=== PATIENT | male | born 1975 | race American Indian/Alaskan Native ===

== ENCOUNTER 2017-03-08 09:19 | Emergency (ER) | payer MEDICAID ==
[2017-03-08 09:19] VITALS: BMI 21.9
[2017-03-08 09:26] VITALS: RESP 18; O2SAT 100
[2017-03-08 10:29] LABS: BASO # 0.1 K/uL (0.0-0.2); BASO % 0.8 % (0.0-2.0); EOS # 0.3 K/uL (0.0-0.7); EOS % 3.5 % (0.0-4.0); HEMATOCRIT 44.2 % (35.0-51.0); LYMPH # 2.6 K/uL (1.0-4.3); LYMPH % 33.5 % (20.0-40.0); MEAN CELL VOLUME 91.2 fL (80.0-94.0); MEAN CORPUSCULAR HEMOGLOBIN 29.9 pg (27.0-31.0); MEAN CORPUSCULAR HGB CONC 32.8 g/dL (33.0-37.0); MEAN PLATELET VOLUME 9.7 fL (7.2-11.7); MONO # 0.6 K/uL (0.0-0.8); MONO % 7.3 % (0.0-10.0); NRBC % 0.1 % (0.0-2.0); WHITE BLOOD COUNT 7.7 K/uL (4.8-10.8)
[2017-03-08 10:31] LABS: RBC URINE 1 /hpf (0-3); URINE BILIRUBIN NEGATIVE (NEGATIVE); URINE BLOOD NEGATIVE (NEGATIVE); URINE COLOR Yellow (YELLOW); URINE GLUCOSE (UA) NORMAL (Normal); URINE KETONE NEGATIVE (NEGATIVE); URINE LEUKOCYTE ESTERASE NEG Leu/uL (Negative); URINE PROTEIN NEGATIVE (NEGATIVE); URINE UROBILINOGEN NORMAL mg/dL (0.2-1.0)
[2017-03-08 10:32] LABS: WBC URINE 1 /hpf (0-5)
[2017-03-08 10:36] LABS: CHLORIDE 99 mmol/L (98-107)
[2017-03-08 10:37] LABS: POTASSIUM 4.2 mmol/L (3.6-5.2); SODIUM 139 mmol/L (132-148)
[2017-03-08 10:39] LABS: ALB/GLOB RATIO 1.6 (1.0-2.1); ALKALINE PHOSPHATASE 55 U/L (38-126); ALT/SGPT 26 U/L (21-72); AST/SGOT 25 U/L (17-59); BILIRUBIN,TOTAL 0.7 mg/dL (0.2-1.3); BLOOD UREA NITROGEN 14 mg/dL (9-20); CARBON DIOXIDE 30 mmol/L (22-30); GFR AFRICAN-AMERICAN > 60; GLUCOSE,RANDOM 85 mg/dL (75-110); TOTAL PROTEIN 7.4 g/dL (6.3-8.3)
[2017-03-08 10:40] LABS: ALCOHOL SERUM < 10 mg/dl (0-10); CALCIUM 9.2 mg/dl (8.6-10.4)
--- NOTE | 2017-03-08 10:47 | C.PDOC ---
History Of Present Illness 41-year-old male, PMHx includes EtOH and Substance Abuse, presents to the emergency department requesting detox from alcohol and crack/cocaine. Patient states his last use was yesterday. Patient was pre-screened by crisis. He denies any current physical complaints. Time Seen by Provider: 03/08/17 09:38 Chief Complaint (Nursing): Substance Abuse History Per: Patient History/Exam Limitations: no limitations Modifying Factor(s): Alcohol, Cocaine, Crack Associated Symptoms: denies: Depression, Suicidal Thoughts Past Medical History Reviewed: Historical Data, Nursing Documentation, Vital Signs Vital Signs: Last Vital Signs Temp 98.4 F 03/08/17 11:55 Pulse 88 03/08/17 11:55 Resp 18 03/08/17 11:55 BP 119/72 03/08/17 11:55 Pulse Ox 100 03/08/17 11:57 - Medical History PMH: Back Problems, Depression, Sleep Apnea Surgical History: Appendectomy Family History: States: No Known Family Hx - Social History Hx Tobacco Use: Yes Hx Alcohol Use: Yes Hx Substance Use: Yes - Immunization History Hx Tetanus Toxoid Vaccination: No Hx Influenza Vaccination: No Hx Pneumococcal Vaccination: No Review Of Systems Except As Marked, All Systems Reviewed And Found Negative. Constitutional: Negative for: Fever Cardiovascular: Negative for: Chest Pain, Palpitations Respiratory: Negative for: Cough, Shortness of Breath Gastrointestinal: Negative for: Nausea, Vomiting, Abdominal Pain, Diarrhea Neurological: Negative for: Weakness, Numbness, Headache, Dizziness Psych: Negative for: Suicidal ideation Physical Exam - Physical Exam Appears: Well, Non-toxic, No Acute Distress, Other (Calm and cooperative) Head: Atraumatic, Normacephalic Eye(s): bilateral: Normal Inspection, PERRL, EOMI Oral Mucosa: Moist Tongue: Other (No fasciculation) Cardiovascular: Rhythm Regular Respiratory: Normal Breath Sounds, No Rales, No Rhonchi, No Wheezing Extremity: Normal ROM Extremity: Bilateral: Atraumatic, Normal Color And Temperature, Normal ROM Neurological/Psych: Oriented x3 Gait: Steady ED Course And Treatment - Laboratory Results Result Diagrams: 03/08/17 10:23 03/08/17 10:23 O2 Sat by Pulse Oximetry: 100 (ra) Pulse Ox Interpretation: Normal Progress Note: Bloodwork, UA, UDS ordered and reviewed. 11:15am- Patient medically cleared. Pending crisis. 11:55AM- Crisis counselor has spoken with Dr. Bhatt, patient not accepted for detox admission due to (+) PCP. Patient had been warned on phone that if (+) he would not be accepted, but he stated he used it "one week ago" and would "take his chances". Reevaluation Time: 11:55 Reassessment Condition: Improved (Patient reassessed, is currently in no pain/ distress. He is AAOx3, ambulating normally in the ED, and is clinically sober at this time. He was instructed to follow up with PMD/clinic in 1-2 days, and understands he should return to ED if he has any concerning symptoms.) Disposition Counseled Patient/Family Regarding: Studies Performed, Diagnosis, Need For Followup - Disposition Referrals: Stephane Jung MD [Medical Doctor] - Disposition: HOME/ ROUTINE Disposition Time: 11:55 Condition: STABLE Additional Instructions: FOLLOW UP WITH YOUR DOCTOR IN 1-2 DAYS RETURN TO ER IF YOU HAVE ANY CONCERNING SYMPTOMS Instructions: Abuse of Alcohol (ED) Forms: General Discharge Instructions Print Language: MALTESE - POA Present On Arrival: None - Clinical Impression Clinical Impression: Alcohol dependence, PCP abuse - Scribe Statement The provider has reviewed the documentation as recorded by the Jose Yoon All medical record entries made by the Rolandoibdarrion were at my direction and personally dictated by me. I have reviewed the chart and agree that the record accurately reflects my personal performance of the history, physical exam, medical decision making, and the department course for this patient. I have also personally directed, reviewed, and agree with the discharge instructions and disposition.
[2017-03-08 12:00] VITALS: BP 119/72; PULSE 88; TEMP 98.4
== END 2017-03-08 12:30 | disposition home or self-care (01) ==
LOC: C.ER 09:19
DX: F10.20 Alcohol dependence, uncomplicated (principal); Y90.9 Presence of alcohol in blood, level not specified; F16.10 Hallucinogen abuse, uncomplicated

== ENCOUNTER 2017-11-22 10:42 | Inpatient (IN) | payer MEDICAID ==
[2017-11-22 10:42] VITALS: BMI 21.9
--- NOTE | 2017-11-22 11:46 | C.PDOC ---
History Of Present Illness 41yo male with history of cluster headaches, depression, bipolar disorder presents to ED for evaluation as he has been having suicidal and homicidal ideation. Patient states he attempted to hurt himself by taking more than the prescribed dose of his medications. He reports he uses PCP with last use 3 months ago and cocaine as well with last use 2 days ago. He also reports associated auditory hallucinations which tell him to "retaliate". Patient denies any chest pain, shortness of breath. He has no other medical complaints. Time Seen by Provider: 11/22/17 11:33 Chief Complaint (Nursing): Psychiatric Evaluation History Per: Patient History/Exam Limitations: no limitations Onset/Duration Of Symptoms: Days Current Symptoms Are (Timing): Still Present Modifying Factor(s): Cocaine Associated Symptoms: Suicidal Thoughts Past Medical History Vital Signs: Last Vital Signs Temp 97.6 F 11/22/17 10:53 Pulse 79 11/22/17 10:53 Resp 18 11/22/17 10:53 BP 133/87 11/22/17 10:53 Pulse Ox 100 11/22/17 12:24 - Medical History PMH: Back Problems, Bipolar Disorder, Depression, Schizophrenia, Sleep Apnea Denies: Diabetes, Hepatitis, HIV, HTN, Chronic Kidney Disease, Seizures, Sexually Transmitted Disease Surgical History: Appendectomy Family History: States: Unknown Family Hx - Social History Hx Tobacco Use: Yes Hx Alcohol Use: Yes Hx Substance Use: Yes (crack cocaine) - Immunization History Hx Tetanus Toxoid Vaccination: No Hx Influenza Vaccination: No Hx Pneumococcal Vaccination: No Review Of Systems Except As Marked, All Systems Reviewed And Found Negative. Constitutional: Negative for: Fever, Chills Cardiovascular: Negative for: Chest Pain Respiratory: Negative for: Shortness of Breath Gastrointestinal: Negative for: Abdominal Pain Psych: Positive for: Psychosis (auditory hallucinations), Suicidal ideation Physical Exam - Physical Exam Appears: No Acute Distress Skin: Normal Color Head: Atraumatic, Normacephalic Eye(s): bilateral: Normal Inspection Neck: Supple Chest: Symmetrical Cardiovascular: Rhythm Regular Respiratory: Normal Breath Sounds Back: Normal Inspection Extremity: Normal ROM Neurological/Psych: Oriented x3 ED Course And Treatment - Laboratory Results Result Diagrams: 11/22/17 11:57 11/22/17 11:57 O2 Sat by Pulse Oximetry: 100 (RA) Pulse Ox Interpretation: Normal Medical Decision Making Medical Decision Making: Impression: 41yo male with suicidal ideation Plan: -- UDS -- Crisis evaluation Disposition Counseled Patient/Family Regarding: Studies Performed, Diagnosis - Disposition Disposition: HOSPITALIZED Disposition Time: 14:26 Condition: STABLE Forms: [facility] (German) - Clinical Impression Clinical Impression: Schizophrenia - Scribe Statement The provider has reviewed the documentation as recorded by the Jose Daly Provider Attestation: All medical record entries made by the Jose were at my direction and personally dictated by me. I have reviewed the chart and agree that the record accurately reflects my personal performance of the history, physical exam, medical decision making, and the department course for this patient. I have also personally directed, reviewed, and agree with the discharge instructions and disposition. Decision To Admit - Pt Status Changed To: Hospital Disposition Of: Inpatient - Admit Certification Admit to Inpatient:: After my assessment, the patient will require hospitalization for at least two midnights. This is because of the severity of symptoms shown, intensity of services needed, and/or the medical risk in this patient being treated as an outpatient. - InPatient: Physician Admission Certification: I certify that this patient requires 2 or more midnights of care for the following reason:: needs in patient psych - . Bed Request Type: Psychiatry Patient Diagnosis: Schizophrenia
[2017-11-22 12:04] LABS: BASO # 0.1 K/uL (0.0-0.2); BASO % 0.8 % (0.0-2.0); EOS # 0.5 K/uL (0.0-0.7); EOS % 4.7 % (0.0-4.0); HEMOGLOBIN 14.6 g/dL (12.0-18.0); LYMPH # 2.6 K/uL (1.0-4.3); LYMPH % 26.8 % (20.0-40.0); MEAN CELL VOLUME 90.8 fL (80.0-94.0); MEAN CORPUSCULAR HEMOGLOBIN 30.8 pg (27.0-31.0); MEAN PLATELET VOLUME 9.6 fL (7.2-11.7); MONO # 0.7 K/uL (0.0-0.8); MONO % 7.5 % (0.0-10.0); NEUT # 5.9 K/uL (1.8-7.0); NEUT % 60.2 % (50.0-75.0); RBC 4.73 Mil/uL (4.40-5.90); RED CELL DISTRIBUTION WIDTH 13.6 % (11.5-14.5); WHITE BLOOD COUNT 9.7 K/uL (4.8-10.8)
[2017-11-22 12:05] LABS: URINE BILIRUBIN NEGATIVE (NEGATIVE); URINE BLOOD NEGATIVE (NEGATIVE); URINE CLARITY Clear (Clear); URINE COLOR Straw (YELLOW); URINE GLUCOSE (UA) NORMAL (Normal); URINE LEUKOCYTE ESTERASE NEG Leu/uL (Negative); URINE NITRATE NEGATIVE (NEGATIVE); URINE PROTEIN NEGATIVE (NEGATIVE); URINE UROBILINOGEN NORMAL mg/dL (0.2-1.0)
[2017-11-22 12:20] LABS: ALB/GLOB RATIO 1.3 (1.0-2.1); ALBUMIN 4.3 g/dL (3.5-5.0); ALT/SGPT 19 U/L (21-72); AST/SGOT 28 U/L (17-59); BLOOD UREA NITROGEN 14 mg/dL (9-20); CALCIUM 9.2 mg/dl (8.6-10.4); GFR AFRICAN-AMERICAN > 60; GFR NON-AFRICAN AMERICAN > 60
[2017-11-22 12:31] LABS: BARBITURATES, UR NEGATIVE (NEGATIVE); BENZODIAZEPINES, UR NEGATIVE (NEGATIVE); OPIATES, UR NEGATIVE (NEGATIVE); PHENCYCLIDINE, UR NEGATIVE (NEGATIVE)
--- NOTE | 2017-11-22 16:00 | PCM.BM ---
<MykelAshley gaytan - Last Filed: 11/22/17 15:59> Treatment Plan Problems - Problems identified on initial assessmt Depression Date Initiated: 11/22/17 Time Initiated: 15:59 Assessment reference: NA Status: Active Comment: Hx of cocaine abuse Treatment assets and liabiliti Patient Assests: adapts well, cooperative, motivated, self-reliant, negotiates basic needs Patient Liabilities: live alone, financial problems, poor support system, substance abuse - Milieu Protocol Maintain good personal hygiene: daily Encourage regular showers, daily Remind patient to perform daily oral care Conduct patient checks and document Observation sheet: Q15 minutes Maintain personal safety: every shift Educate patient to report safety concerns to staff, every shift Monitor environment for contraband/sharps Medication safety: Monitor for expected outcome, potential side effects: every shift, Assess barriers to learning: every shift, Assess readiness for medication education: every shift <Saritha Otero - Last Filed: 11/25/17 11:07> Family Contact Family involvement: Famliy/SO not involved - Goals for Treatment Patient goals for treatment: "I want to go to rehab." Discharge/Continuing Care - Education Needs Education Needs: Patient Medication, Patient Coping Skills - Discharge Discharge Criteria: Tolerates medication w/o severe side effects, Reduction of target symptoms Discharge to:: Substance Abuse Rehab - Treatment Team Participation Discussed with Family/SO: No Was Patient/Family/SO present at Treatment Team Meeting: Yes <Aayush,Arnel - Last Filed: 11/25/17 11:08> - Diagnosis (1) Major depressive disorder, recurrent, severe with psychotic features Status: Acute Interventions: 11/25/17 11:07 * Assess/adjust medications daily and /or as needed * See patient on an individual basis 7x/week to assess symptoms of depression * Monitor for side effects & effectiveness of medications * (2) PCP abuse Status: Acute Interventions: 11/25/17 11:08 * Assess 7x/week regarding severity of withdrawal * Educate regarding risks, benefits, side effects and alternatives of medications * Use Motivational Interviewing for abstinence * Use CBT for relapse prevention * Medication management for withdrawal symptoms * Encourage medication assisted treatment *
--- NOTE | 2017-11-23 13:14 | PCM.PSYCH ---
Initial Psychiatric Evaluation - Initial Psychiatric Evaluation Type of Admission: Voluntary Chief Complaint (in patient's own words): Depression - "duran are closing in on me"; hearing voices Patient's Reaction to Hospitalization: 41 year old AA Male who was voluntary admitted due to depression and hearing voices. He currently lives alone in an apartment in [place], currently unemployed, supported by [employer]. Patient reports in 2006 his Father at the age of 79 of Myocardial Infarction. Later on during that year he had a suicide attempt by trying to overdose on pills, and pointing a gun to his head (did not fire). Since then patient has [place] [facility] [place] and he follows up monthly with two programs, [facility] and a 2nd program which assembly instructions writer was unable to understand due to patient' s speech. In recent events, the patient reports he actively uses cocaine, has used PCP a few months back, and last alcohol drink was 4-5 months ago. He reports friends and family keep coming over to drink alcohol and use drugs in his apartment. He does not want this to happen because he no longer wants to participate; however , he can't find it within himself to say no to them. Patient reports he has been feeling depressed, like the "duran are closing in". He states he hears demonic voices telling him to kill himself. Patient reports not taking any medications. Currently denies any voices being heard, any suicidal ideation or homicidal ideation. Patient has poor judgment and insight about his condition. PMHx: Denied Past Psych History: Patient reports he was diagnosed and treated for Schizophrenia Family Psych Hx: Unknown Current Medications: Active Medications Generic Name Dose Route Start Last Admin Trade Name Freq PRN Reason Stop Dose Admin Benztropine Mesylate 1 mg 11/22/17 18:05 11/22/17 22:06 Cogentin PO 1 mg Q6 PRN Administration eps Famotidine 20 mg 11/24/17 10:00 Pepcid PO DAILY YAEL Haloperidol 5 mg 11/22/17 18:05 11/22/17 22:06 Haldol PO 5 mg Q6 PRN Administration hallucinations Hydroxyzine HCl 50 mg 11/22/17 18:05 11/22/17 18:12 Atarax PO 50 mg Q6 PRN Administration Anxiety Ibuprofen 600 mg 11/22/17 18:05 Motrin Tab PO Q6 PRN Pain, moderate (4-7) Mirtazapine 15 mg 11/23/17 22:00 Remeron PO HS [facility] Ondansetron HCl 4 mg 11/23/17 12:00 Zofran Tab PO Q6 YAEL Quetiapine Fumarate 100 mg 11/23/17 22:00 Seroquel PO HS [facility] Past Psychiatric History - Past Psychiatric History Pertinent Medical Hx (Current Medical&Sleep Prob, Allergies): Allergies Allergy/AdvReac Type Severity Reaction Status Date / Time No Known Allergies Allergy Verified 11/22/17 10:53 Folic Acid/Mv,Iron,Min/Lutein [Certa Plus Tablet] 1 tab PO DAILY 12/02/16 Meloxicam [Mobic] 15 mg PO DAILY 12/02/16 Mirtazapine [Remeron] 15 mg PO DAILY 12/02/16 Ergocalciferol [Drisdol] 50,000 iu PO QWK 03/08/17 Famotidine [Pepcid] 20 mg PO DAILY 03/08/17 Ondansetron HCl [Zofran] 4 mg PO PRN PRN 03/08/17 Zolpidem Tartrate 5 mg PO HS 03/08/17 Review of Systems - Review of Systems All systems: reviewed and no additional remarkable complaints except - Psychiatric Psychiatric: Auditory Hallucinations, Depression, Difficulty Concentrating. absent: Hallucinations, Homicidal Ideation, Visual Hallucinations, Tactile Hallucinations Mental Status Examination - Personal Presentation Personal Presentation: Looks stated age - Affect Affect: Flat, Depressed - Motor Activity Motor Activity: Calm - Reliability in Providing Information Reliability in Providing Information: Poor, due to alteration in thoughts, Poor , due to altered mood - Speech Speech: Relevant, Incoherent - Mood Mood: Depressed - Formal Thought Process Formal Thought Process: Hallucinations - Hallucinations/Delusions Hallucinations: Auditory - Cognitive Functions Orientation: Person, Place, Situation, Time Judgement: Imparied, as evidence by: Poor judgement, Imparied, as evidence by: Lack of insight into illness - Limitations Limitations: Living alone DSM 5 DX - Recommended/Plan of Treatment Treatment Recommendations and Plan of Treatment: Major Depressive Disorder -CBT -Psychoeducation -Supportive therapy, group therapy, individual therapy -Remeron 15mg and Seroquel 100mg by mouth every night Cocaine Use Disorder -Supportive therapy, individual therapy -Monitor signs and symptoms -Use DC for abstinence DW Jennifer Graves Fabara DO, PGY-1
--- NOTE | 2017-11-24 22:18 | PCM.PYCHPN ---
Psychiatric Progress Note - Psychiatric Progress Note Patient seen today, length of contact: 15 min Medication Change: No Medical Record Reviewed: Yes Mental Status Examination - Cognitive Function Orientation: Person, Place, Situation, Time Memory: Intact Attention: WNL Concentration: Poor Association: WNL Fund of Knowledge: Poor - Mood Mood: Depressed, Anxious - Affect Affect: Constricted, Flat, Depressed - Speech Speech: Soft - Formal Thought Process Formal Thought Process: Hallucinations - Suicidal Ideation Suicidal Ideation: No - Homicidal Ideation Homicidal Ideation: No Goal/Treatment Plan - Goal/Treatment Plan Need for Continued Stay: Severe depression anxiety, Severe functional impairment - Smoking Cessation Smoking Cessation Initiated: No
--- NOTE | 2017-11-25 11:07 | PCM.PYCHPN ---
Psychiatric Progress Note - Psychiatric Progress Note Patient seen today, length of contact: 15 min Medication Change: No Medical Record Reviewed: Yes Mental Status Examination - Cognitive Function Orientation: Person, Place, Situation, Time Memory: Intact Attention: WNL Concentration: Poor Association: WNL Fund of Knowledge: Poor - Mood Mood: Depressed, Anxious - Affect Affect: Constricted, Flat, Depressed - Speech Speech: Soft - Formal Thought Process Formal Thought Process: Hallucinations - Suicidal Ideation Suicidal Ideation: No - Homicidal Ideation Homicidal Ideation: No Goal/Treatment Plan - Goal/Treatment Plan Need for Continued Stay: Severe depression anxiety, Severe functional impairment
[2017-11-26 07:28] VITALS: BP 120/89; PULSE 126; RESP 20; TEMP 98.2; O2SAT 98
--- NOTE | 2017-11-26 11:11 | PCM.PYCHDC ---
Mental Status Examination - Mental Status Examination Orientation: Person, Place, Situation, Time Memory: Intact Mood: Neutral Affect: Constricted Speech: Soft Attention: WNL Concentration: WNL Association: WNL Fund of Knowledge: WNL Formal Thought Process: No Impairment Description of patient's judgement and insight: good, fair Psychotic Thoughts and Behaviors: denies any AVH Suicidal Ideation: No Current Homicidal Ideation?: No Discharge Summary - Discharge Note Consultations:: List each consultation separately and include: 1. Reason for request. 2. Findings. 3. Follow-up Summary of Hospital Course include:: 1. Description of specific treatment plan utilized for patients during their course of treatmen. 2. Summarize the time- course for resolution of acute symptoms and/or regressed behaviors. 3. Describe issues identified and worked on during hospitalization. 4. Describe medication utilized. 5. Describe medical problems identified and treated. 6. Reassessment of suicide risk - Diagnosis (1) Major depressive disorder, recurrent, severe with psychotic features Current Visit: Yes Status: Acute (2) PCP abuse Current Visit: No Status: Acute - Final Diagnosis (DSM 5) Condition upon Discharge: STABLE Disposition: HOME/ ROUTINE Prescriptions/Medication Reconciliation: Mirtazapine [Remeron] 15 mg PO HS #14 tab QUEtiapine [Seroquel] 100 mg PO HS #14 tab
== END 2017-11-26 11:53 | disposition home or self-care (01) | DRG 430 ==
LOC: C.ER 10:42 → C.9E 14:27 → C.5E 14:58
PROVIDERS: ADMIT Psychiatry & Neurology Psychiatry; ATTEND Psychiatry & Neurology Psychiatry
DX: F33.3 Major depressive disorder, recurrent, severe with psychotic symptoms (principal); R45.850 Homicidal ideations; F14.10 Cocaine abuse, uncomplicated; G47.30 Sleep apnea, unspecified; Z87.891 Personal history of nicotine dependence; F41.9 Anxiety disorder, unspecified

== ENCOUNTER 2018-01-22 17:42 | Emergency (ER) | payer MEDICAID ==
[2018-01-22 17:42] VITALS: BMI 21.9
[2018-01-22 17:49] VITALS: BP 123/79; PULSE 78; TEMP 98.6; O2SAT 99
[2018-01-22 19:06] VITALS: RESP 18
== END 2018-01-22 19:02 | disposition left against medical advice (07) ==
LOC: C.ER 17:42
DX: Z02.89 Encounter for other administrative examinations (principal); F10.10 Alcohol abuse, uncomplicated

== ENCOUNTER 2018-01-24 11:12 | Inpatient (IN) | payer MEDICAID ==
[2018-01-24 11:12] VITALS: BMI 21.9
[2018-01-24 12:09] LABS: BASO # 0.1 K/uL (0.0-0.2); BASO % 1.1 % (0.0-2.0); EOS # 0.5 K/uL (0.0-0.7); EOS % 4.1 % (0.0-4.0); HEMOGLOBIN 13.4 g/dL (12.0-18.0); LYMPH # 2.7 K/uL (1.0-4.3); LYMPH % 24.2 % (20.0-40.0); MEAN CORPUSCULAR HEMOGLOBIN 29.5 pg (27.0-31.0); MEAN CORPUSCULAR HGB CONC 34.2 g/dL (33.0-37.0); MEAN PLATELET VOLUME 8.7 fL (7.2-11.7); MONO # 0.7 K/uL (0.0-0.8); NEUT # 7.2 K/uL (1.8-7.0); NEUT % 64.6 % (50.0-75.0); NRBC % 0.1 % (0.0-2.0); RBC 4.54 Mil/uL (4.40-5.90); RED CELL DISTRIBUTION WIDTH 14.2 % (11.5-14.5); WHITE BLOOD COUNT 11.2 K/uL (4.8-10.8)
[2018-01-24 12:13] LABS: MEAN CELL VOLUME 86.4 fL (80.0-94.0)
[2018-01-24 12:26] LABS: ALB/GLOB RATIO 1.2 (1.0-2.1); ALBUMIN 3.9 g/dL (3.5-5.0); ALT/SGPT 11 U/L (21-72); AST/SGOT 26 U/L (17-59); BLOOD UREA NITROGEN 9 mg/dL (9-20); CALCIUM 8.6 mg/dl (8.6-10.4); GFR AFRICAN-AMERICAN > 60; GFR NON-AFRICAN AMERICAN > 60
--- NOTE | 2018-01-24 12:42 | C.PDOC ---
History Of Present Illness 42 y/o male, w/PMhx of schizophrenia, presents to the ER requesting detox from ETOH and cocaine. Patient states that he is not feeling right. Patient denies having suicidal ideation and homicidal ideation. Chief Complaint (Nursing): Substance Abuse History Per: Patient History/Exam Limitations: no limitations Past Medical History Reviewed: Historical Data, Nursing Documentation, Vital Signs Vital Signs: Last Vital Signs Temp 98.3 F 01/24/18 14:32 Pulse 80 01/24/18 14:32 Resp 17 01/24/18 16:07 BP 112/77 01/24/18 14:32 Pulse Ox 96 01/24/18 15:01 - Medical History PMH: Back Problems, Bipolar Disorder, Depression, Schizophrenia, Sleep Apnea Denies: Diabetes, Hepatitis, HIV, HTN, Chronic Kidney Disease, Seizures, Sexually Transmitted Disease Surgical History: Appendectomy Family History: States: No Known Family Hx - Social History Hx Tobacco Use: Yes Hx Alcohol Use: Yes Hx Substance Use: Yes - Immunization History Hx Tetanus Toxoid Vaccination: No Hx Influenza Vaccination: Yes Hx Pneumococcal Vaccination: No Review Of Systems Except As Marked, All Systems Reviewed And Found Negative. Physical Exam - Physical Exam Appears: No Acute Distress Skin: Normal Color, Warm Head: Atraumatic, Normacephalic Eye(s): bilateral: Normal Inspection Nose: Normal Oral Mucosa: Moist Neck: Supple Chest: Symmetrical Cardiovascular: Rhythm Regular Respiratory: Normal Breath Sounds, No Rales, No Rhonchi, No Wheezing Extremity: Normal ROM Neurological/Psych: Oriented x3, Normal Speech ED Course And Treatment - Laboratory Results Result Diagrams: 01/24/18 12:05 01/24/18 12:05 O2 Sat by Pulse Oximetry: 96 (RA) Pulse Ox Interpretation: Normal Progress Note: Labs and UA ordered. Patient has been medically cleared and found to be stable. Patient was seen by connection worker and accepted by Dr. Looney for psych admission. Disposition - Disposition Disposition: HOSPITALIZED Disposition Time: 13:48 Condition: STABLE - Clinical Impression Clinical Impression: Alcohol dependence, Drug dependence, Schizophrenia Decision To Admit - Pt Status Changed To: Hospital Disposition Of: Inpatient - Admit Certification Admit to Inpatient:: After my assessment, the patient will require hospitalization for at least two midnights. This is because of the severity of symptoms shown, intensity of services needed, and/or the medical risk in this patient being treated as an outpatient. - InPatient: Physician Admission Certification: I certify that this patient requires 2 or more midnights of care for the following reason:: Patient will need more than 2 days of hospitalization for psych treatment. - . Bed Request Type: Psychiatry Admitting Physician: Arnel Looney Patient Diagnosis: Alcohol dependence, Drug dependence, Schizophrenia
[2018-01-24 12:57] LABS: SQUAMOUS EPITHIAL 1 /hpf (0-5); URINE BILIRUBIN NEGATIVE (NEGATIVE); URINE BLOOD NEGATIVE (NEGATIVE); URINE CLARITY Clear (Clear); URINE COLOR Yellow (YELLOW); URINE GLUCOSE (UA) NORMAL (Normal); URINE LEUKOCYTE ESTERASE NEG Leu/uL (Negative); URINE PROTEIN NEGATIVE (NEGATIVE)
[2018-01-24 13:17] LABS: BARBITURATES, UR NEGATIVE (NEGATIVE); BENZODIAZEPINES, UR NEGATIVE (NEGATIVE); OPIATES, UR NEGATIVE (NEGATIVE)
[2018-01-24 13:43] LABS: PHENCYCLIDINE, UR POSITIVE (NEGATIVE)
--- NOTE | 2018-01-24 16:15 | PCM.BM ---
<Erinn Chamorro - Last Filed: 01/24/18 16:14> Treatment Plan Problems - Problems identified on initial assessmt Depression Date Initiated: 01/24/18 Time Initiated: 16:14 Assessment reference: NA Status: Active Substance Abuse Date Initiated: 01/24/18 Time Initiated: 16:14 Assessment reference: NA Status: Active Treatment assets and liabiliti Patient Assests: cooperative, motivated, self-reliant, ADL independent, negotiates basic needs, cognitively intact Patient Liabilities: live alone, financial problems, substance abuse (PCP, Cocaine, ETOH), medical problems (Appendectomy had sx) - Milieu Protocol Maintain good personal hygiene: daily Encourage regular showers, daily Remind patient to perform daily oral care, daily Assist patient to perform ADL's (Self) Conduct patient checks and document Observation sheet: Q15 minutes (Safety) Maintain personal safety: every shift Educate patient to report safety concerns to staff, every shift Monitor environment for contraband/sharps Medication safety: Monitor for expected outcome, potential side effects: every shift, Assess barriers to learning: every shift, Assess readiness for medication education: every shift <Arnel Looney - Last Filed: 01/25/18 11:06> - Diagnosis (1) Major depressive disorder, recurrent, severe with psychotic features Status: Acute Interventions: 01/25/18 11:06 * Assess/adjust medications daily and /or as needed * See patient on an individual basis 7x/week to assess symptoms of depression * Monitor for side effects & effectiveness of medications * (2) Drug dependence Status: Acute Interventions: 01/25/18 11:06 * Assess 7x/week regarding severity of withdrawal * Educate regarding risks, benefits, side effects and alternatives of medications * Use Motivational Interviewing for abstinence * Use CBT for relapse prevention * Medication management for withdrawal symptoms * Encourage medication assisted treatment * <Saritha Otero - Last Filed: 01/25/18 13:55> Family Contact Family involvement: Famliy/SO not involved - Goals for Treatment Patient goals for treatment: "I want to go to rehab." Discharge/Continuing Care - Education Needs Education Needs: Patient Medication, Patient Coping Skills, Patient Placement options, Patient Community resources - Discharge Discharge Criteria: Tolerates medication w/o severe side effects, No longer exhibiting s/s of withdrawal Discharge to:: Substance Abuse Rehab - Treatment Team Participation Discussed with Family/SO: No Was Patient/Family/SO present at Treatment Team Meeting: Yes
[2018-01-24] MEDS ORDERED: Aluminum Hydroxide/Magnesium Hydroxide Susp (30 mL) PO PRN (16:45)
--- NOTE | 2018-01-25 11:05 | PCM.PSYCH ---
Initial Psychiatric Evaluation - Initial Psychiatric Evaluation Type of Admission: Voluntary Legal Status: Capacity Chief Complaint (in patient's own words): I was feeling suicidal.' History of Present Illness and Precipitating Events: Patient is a 42 year old AAM who came to the hospital for depressed mood and suicidal ideation. Patient was just discharged from [facility] almost 2 months ago. As per the patient soon after discharge from the hospital, he stopped medications and relapsed on cocaine and PCP. As per the patient yesterday he smoked almost $50 worth of cocaine, became increasingly depressed and developed suicidal ideation , so he came to the hospital to get help. Patient also reports of drinking 6-8 18oz beers every other day and smoking PCP once per week. He reports depressed mood, feelings of worthlessness, poor sleep and poor appetite. He reports some visual hallucinations but denies any auditory hallucinations or any paranoia. He denies any HI. Patient denies any other substance abuse. PMH None reported Current Medications: Active Medications Generic Name Dose Route Start Last Admin Trade Name Freq PRN Reason Stop Dose Admin Acetaminophen 650 mg 01/24/18 16:44 Tylenol 325mg Tab PO Q6 PRN Fever >100.4 F Al Hydrox/Mg Hydrox/Simethicone 30 ml 01/24/18 16:45 Maalox 30 Ml PO TID PRN Indigestion / Heartburn Benztropine Mesylate 2 mg 01/24/18 16:44 Cogentin PO Q6 PRN Extra Pyramidal Symptoms Clonidine HCl 0.1 mg 01/24/18 16:45 Catapres PO Q8 PRN COWS Score More or Equal to 5 Diphenhydramine HCl 50 mg 01/24/18 16:44 Benadryl PO Q6 PRN Extra Pyramidal Symptoms Haloperidol 5 mg 01/24/18 16:44 Haldol PO Q8 PRN Moderate Agitation Loperamide HCl 2 mg 01/24/18 16:45 Imodium PO Q8 PRN Diarrhea Lorazepam 1 mg 01/24/18 16:44 Ativan PO Q6 PRN Anxiety Ondansetron HCl 4 mg 01/24/18 16:45 Zofran Tab PO Q8 PRN Nausea/Vomiting Pneumococcal Polyvalent Vaccine 0.5 ml 01/27/18 10:00 Pneumovax 23 Vaccine IM 01/27/18 10:01 .ONCE ONE Trazodone HCl 50 mg 01/24/18 21:26 Desyrel PO HS PRN Insomnia Past Psychiatric History - Past Psychiatric History Previous Treatment History: Inpatient Pertinent Medical Hx (Current Medical&Sleep Prob, Allergies): Allergies Allergy/AdvReac Type Severity Reaction Status Date / Time No Known Allergies Allergy Verified 01/24/18 11:27 Folic Acid/Mv,Iron,Min/Lutein [Certa Plus Tablet] 1 tab PO DAILY 12/02/16 Meloxicam [Mobic] 15 mg PO DAILY 12/02/16 Ergocalciferol [Drisdol] 50,000 iu PO QWK 03/08/17 Famotidine [Pepcid] 20 mg PO DAILY 03/08/17 Ondansetron HCl [Zofran] 4 mg PO PRN PRN 03/08/17 Zolpidem Tartrate 5 mg PO HS 03/08/17 Mirtazapine [Remeron] 15 mg PO HS #14 tab 11/26/17 QUEtiapine [Seroquel] 100 mg PO HS #14 tab 11/26/17 Review of Systems - Review of Systems All systems: reviewed and no additional remarkable complaints except - Psychiatric Psychiatric: Anxiety, Irritability, Suicidal Ideation Mental Status Examination - Personal Presentation Personal Presentation: Looks stated age - Affect Affect: Constricted, Depressed - Motor Activity Motor Activity: Calm - Reliability in Providing Information Reliability in Providing Information: Fair - Speech Speech: Organized - Mood Mood: Depressed, Anxious - Formal Thought Process Formal Thought Process: No Impairment - Hallucinations/Delusions Hallucinations: Visual - Obsessions/Compulsions Obsessions: No Compulsions: No - Cognitive Functions Orientation: Person, Place, Situation, Time Sensorium: Alert Attention/Concentration: Attentive Abstract Thinking: Shepherd Estimate of Intelligence: Below average Judgement: Imparied, as evidence by: Poor judgement, Imparied, as evidence by: Lack of insight into illness - Risk Risk: Suicidal, Diminished functioning - Limitations Limitations: Living alone DSM 5 DX - DSM 5 DSM 5 Diagnosis: Major depressive disorder recurrent severe with psychotic features Alcohol use disorder moderate Cocaine use disorder severe PCP use disorder moderate - Recommended/Plan of Treatment Treatment Recommendations and Plan of Treatment: Major depressive disorder recurrent severe with psychotic features CBT Psychoeducation Supportive therapy, group therapy, individual therapy Remeron 15 mg PO QHS Trazodone 50 mg by mouth daily at bedtime Seroquel 100 mg by mouth daily at bedtime Alcohol use disorder moderate CBT Psychoeducation Supportive therapy, individual therapy Use [place] for abstinence Cocaine use disorder severe Psychoeducation Supportive therapy, individual therapy Use [place] for abstinence PCP use disorder moderate Monitor signs and symptoms Use [place] for abstinence - Smoking Cessation Smoking Cessation Initiated: No
[2018-01-25] MEDS ORDERED: Home Med 1 UNIT (Meloxicam [Mobic] 15 MG) PO SCH (15:00)
[2018-01-26] MEDS: Multivitamin With Minerals Tab PO SCH (09:09)
--- NOTE | 2018-01-26 21:52 | PCM.PYCHPN ---
Psychiatric Progress Note - Psychiatric Progress Note Patient seen today, length of contact: 15 min Patient Chief Complaint: I was feeling suicidal.' Problems Identified/Issues Discussed: Patient seen and evaluated, chart reviewed and discussed with the nurse. As per the staff, patient still appears isolated, depressed and withdrawn. He reports depressed mood and feelings of hopelessness or helplessness. He denies any auditory or visual hallucinations or any psychotic symptoms. He is taking meds but denies any side effects. He needs more time for stabilization. Supportive therapy and psychoeducation were given. Medication Change: No Medical Record Reviewed: Yes Mental Status Examination - Cognitive Function Orientation: Person, Place, Situation, Time Memory: Intact Attention: WNL Concentration: Poor Association: WNL Fund of Knowledge: Poor - Mood Mood: Depressed, Anxious - Affect Affect: Constricted, Depressed - Speech Speech: Soft - Formal Thought Process Formal Thought Process: No Impairment - Suicidal Ideation Suicidal Ideation: No - Homicidal Ideation Homicidal Ideation: No Goal/Treatment Plan - Goal/Treatment Plan Need for Continued Stay: Severe depression anxiety, Severe functional impairment Progress Toward Problem(s) and Goals/Treatment Plan: Major depressive disorder recurrent severe with psychotic features CBT Psychoeducation Supportive therapy, group therapy, individual therapy Remeron 15 mg PO QHS Trazodone 50 mg by mouth daily at bedtime Seroquel 100 mg by mouth daily at bedtime Alcohol use disorder moderate CBT Psychoeducation Supportive therapy, individual therapy Use [place] for abstinence Cocaine use disorder severe Psychoeducation Supportive therapy, individual therapy Use [place] for abstinence PCP use disorder moderate Monitor signs and symptoms Use [place] for abstinence - Smoking Cessation Smoking Cessation Initiated: No
[2018-01-27] MEDS ORDERED: Pneumococcal 23-Valent Vaccine IM ONE (10:00)
[2018-01-27] MEDS: Multivitamin With Minerals Tab PO SCH (10:07)
--- NOTE | 2018-01-27 15:50 | PCM.PYCHPN ---
Psychiatric Progress Note - Psychiatric Progress Note Patient seen today, length of contact: 15 min Patient Chief Complaint: I am feeling better.' Problems Identified/Issues Discussed: Patient seen and evaluated, chart reviewed and discussed with the nurse. As per the staff, patient still appears isolated, depressed and withdrawn. He reports some improvement in his depressed mood but denies any feelings of hopelessness or helplessness. He denies any auditory or visual hallucinations or any psychotic symptoms. He is taking meds but denies any side effects. He needs more time for stabilization. Supportive therapy and psychoeducation were given. Medication Change: Yes Medical Record Reviewed: Yes Mental Status Examination - Cognitive Function Orientation: Person, Place, Situation, Time Memory: Intact Attention: WNL Concentration: WNL Association: WNL Fund of Knowledge: Poor - Mood Mood: Depressed, Anxious - Affect Affect: Constricted, Depressed - Speech Speech: Soft - Formal Thought Process Formal Thought Process: No Impairment - Suicidal Ideation Suicidal Ideation: No - Homicidal Ideation Homicidal Ideation: No Goal/Treatment Plan - Goal/Treatment Plan Need for Continued Stay: Severe depression anxiety, Severe functional impairment Progress Toward Problem(s) and Goals/Treatment Plan: Major depressive disorder recurrent severe with psychotic features CBT Psychoeducation Supportive therapy, group therapy, individual therapy Remeron 15 mg PO QHS Trazodone 50 mg by mouth daily at bedtime Seroquel 100 mg by mouth daily at bedtime Alcohol use disorder moderate CBT Psychoeducation Supportive therapy, individual therapy Use [place] for abstinence Cocaine use disorder severe Psychoeducation Supportive therapy, individual therapy Use [place] for abstinence PCP use disorder moderate Monitor signs and symptoms Use [place] for abstinence - Smoking Cessation Smoking Cessation Initiated: No
[2018-01-28 06:32] VITALS: O2SAT 100
[2018-01-28] MEDS: Multivitamin With Minerals Tab PO SCH (09:18)
--- NOTE | 2018-01-28 17:33 | PCM.PYCHPN ---
Psychiatric Progress Note - Psychiatric Progress Note Patient seen today, length of contact: 15 min Patient Chief Complaint: I'm feeling much better. Problems Identified/Issues Discussed: Patient seen, chart reviewed, case discussed with the staff. Issues related to illness and treatment were discussed with the patient and staff. Reported compliant with treatment with no adverse affects. Tolerating treatment very well. Patient reported feeling better. Patient was calm and cooperative at the time of evaluation. Patient is improving with treatment but needs more time. Aftercare discussed with the patient. At the time of evaluation, patient was awake alert oriented 3, no delusions, no auditory visual hallucinations, no suicidal ideations or homicidal ideations. Medical Problems: None reported Diagnostic Results: Reviewed DSM 5 Symptoms Update: Improving with treatment Medication Change: No Medical Record Reviewed: Yes Mental Status Examination - Cognitive Function Orientation: Person, Place, Situation, Time Memory: Intact Attention: WNL Concentration: WNL Association: WNL Fund of Knowledge: [facility] Decription of patient's judgement and insights: Fair - Mood Mood: Depressed (Less than before) - Affect Affect: Depressed - Speech Speech: Soft - Formal Thought Process Formal Thought Process: No Impairment Psychotic Thoughts and Behaviors: None - Suicidal Ideation Suicidal Ideation: No - Homicidal Ideation Homicidal Ideation: No Goal/Treatment Plan - Goal/Treatment Plan Need for Continued Stay: Remain at risks for inpatient hospitalization, Discharge may exacerbated symptoms, Severe functional impairment Progress Toward Problem(s) and Goals/Treatment Plan: Patient education Supportive therapy Continue treatment as before Estimated Date of D/C: 01/31/18 - Smoking Cessation Smoking Cessation Initiated: No
[2018-01-29] MEDS: Multivitamin With Minerals Tab PO SCH (09:24)
--- NOTE | 2018-01-29 14:11 | PCM.PYCHPN ---
Psychiatric Progress Note - Psychiatric Progress Note Patient seen today, length of contact: 15 min Patient Chief Complaint: I'm feeling much better. Problems Identified/Issues Discussed: Patient seen, chart reviewed, case discussed with the staff. Issues related to illness and treatment were discussed with the patient and staff. Reported compliant with treatment with no adverse affects. Tolerating treatment very well. Patient reported feeling much better. Patient was calm and cooperative at the time of evaluation. Patient is improving with treatment but needs more time. Aftercare discussed with the patient. At the time of evaluation, patient was awake alert oriented 3, no delusions, no auditory visual hallucinations, no suicidal ideations or homicidal ideations. Medical Problems: None reported Diagnostic Results: Reviewed DSM 5 Symptoms Update: Improving with treatment Medication Change: No Medical Record Reviewed: Yes Mental Status Examination - Cognitive Function Orientation: Person, Place, Situation, Time Memory: Intact Attention: WNL Concentration: WNL Association: WN Fund of Knowledge: [facility] Decription of patient's judgement and insights: Fair - Mood Mood: Neutral - Affect Affect: Other (Appropriate) - Speech Speech: Soft - Formal Thought Process Formal Thought Process: No Impairment Psychotic Thoughts and Behaviors: None - Suicidal Ideation Suicidal Ideation: No - Homicidal Ideation Homicidal Ideation: No Goal/Treatment Plan - Goal/Treatment Plan Need for Continued Stay: Remain at risks for inpatient hospitalization, Discharge may exacerbated symptoms, Severe functional impairment Progress Toward Problem(s) and Goals/Treatment Plan: Patient education Supportive therapy Continue treatment as before Patient wants to go [facility] follow-up care after discharge from the hospital. Estimated Date of D/C: 01/31/18 - Smoking Cessation Smoking Cessation Initiated: No
[2018-01-30 06:26] VITALS: TEMP 97.6
[2018-01-30] MEDS: Multivitamin With Minerals Tab PO SCH (09:54)
--- NOTE | 2018-01-30 13:26 | PCM.PYCHPN ---
Psychiatric Progress Note - Psychiatric Progress Note Patient seen today, length of contact: 15 min Patient Chief Complaint: I was feeling suicidal.' Problems Identified/Issues Discussed: Patient seen and evaluated, chart reviewed and discussed with the nurse. As per the staff, patient still appears isolated, depressed and withdrawn. He reports depressed mood and feelings of hopelessness or helplessness. He denies any auditory or visual hallucinations or any psychotic symptoms. He is taking meds but denies any side effects. He needs more time for stabilization. Supportive therapy and psychoeducation were given. Medication Change: No Medical Record Reviewed: Yes Mental Status Examination - Cognitive Function Orientation: Person, Place, Situation, Time Memory: Intact Attention: WNL Concentration: Poor Association: WNL Fund of Knowledge: Poor - Mood Mood: Depressed, Anxious - Affect Affect: Constricted, Depressed - Speech Speech: Soft - Formal Thought Process Formal Thought Process: No Impairment - Suicidal Ideation Suicidal Ideation: No - Homicidal Ideation Homicidal Ideation: No Goal/Treatment Plan - Goal/Treatment Plan Need for Continued Stay: Severe depression anxiety, Severe functional impairment Progress Toward Problem(s) and Goals/Treatment Plan: Major depressive disorder recurrent severe with psychotic features CBT Psychoeducation Supportive therapy, group therapy, individual therapy Remeron 15 mg PO QHS Trazodone 50 mg by mouth daily at bedtime Seroquel 100 mg by mouth daily at bedtime Alcohol use disorder moderate CBT Psychoeducation Supportive therapy, individual therapy Use [place] for abstinence Cocaine use disorder severe Psychoeducation Supportive therapy, individual therapy Use [place] for abstinence PCP use disorder moderate Monitor signs and symptoms Use [place] for abstinence Estimated Date of D/C: 01/31/18
[2018-01-31 06:26] VITALS: BP 117/74; PULSE 77; RESP 20
--- NOTE | 2018-02-01 00:03 | PCM.PYCHDC ---
Mental Status Examination - Mental Status Examination Orientation: Person, Place, Situation, Time Memory: Intact Mood: Neutral Affect: Constricted Speech: Soft Attention: WNL Concentration: WNL Association: WNL Fund of Knowledge: WNL Formal Thought Process: No Impairment Description of patient's judgement and insight: good, fair Psychotic Thoughts and Behaviors: Denies any AVH Suicidal Ideation: No Current Homicidal Ideation?: No Discharge Summary - Discharge Note Reason for Hospitalization: Patient is a 42 year old AAM who came to the hospital for depressed mood and suicidal ideation. Patient was just discharged from [facility] almost 2 months ago. As per the patient soon after discharge from the hospital, he stopped medications and relapsed on cocaine and PCP. As per the patient yesterday he smoked almost $50 worth of cocaine, became increasingly depressed and developed suicidal ideation , so he came to the hospital to get help. Patient also reports of drinking 6-8 18oz beers every other day and smoking PCP once per week. He reports depressed mood, feelings of worthlessness, poor sleep and poor appetite. He reports some visual hallucinations but denies any auditory hallucinations or any paranoia. He denies any HI. Patient denies any other substance abuse. Consultations:: List each consultation separately and include: 1. Reason for request. 2. Findings. 3. Follow-up Summary of Hospital Course include:: 1. Description of specific treatment plan utilized for patients during their course of treatmen. 2. Summarize the time- course for resolution of acute symptoms and/or regressed behaviors. 3. Describe issues identified and worked on during hospitalization. 4. Describe medication utilized. 5. Describe medical problems identified and treated. 6. Reassessment of suicide risk Summary of Hospital Course: Pt is to return to [facility] program at [facility] until he is admitted to rehab. Pt's employment case manager at [facility] will continue working on securing rehab for pt. - Diagnosis (1) Major depressive disorder, recurrent, severe with psychotic features Status: Acute (2) Drug dependence Status: Acute - Final Diagnosis (DSM 5) Condition upon Discharge: STABLE DSM 5: Major depressive disorder recurrent severe with psychotic features Alcohol use disorder moderate Cocaine use disorder severe PCP use disorder moderate Disposition: HOME/ ROUTINE Follow-up Treatment Plan: Major depressive disorder recurrent severe with psychotic features CBT Psychoeducation Supportive therapy, group therapy, individual therapy Remeron 15 mg PO QHS Trazodone 50 mg by mouth daily at bedtime Seroquel 100 mg by mouth daily at bedtime Alcohol use disorder moderate CBT Psychoeducation Supportive therapy, individual therapy Use [place] for abstinence Cocaine use disorder severe Psychoeducation Supportive therapy, individual therapy Use [place] for abstinence PCP use disorder moderate Monitor signs and symptoms Use [place] for abstinence Prescriptions/Medication Reconciliation: Ergocalciferol [Drisdol 50,000 Intl Units Cap] 50,000 iu PO QWK #10 cap Famotidine [Pepcid] 20 mg PO DAILY #30 tab Folic Acid/Mv,Iron,Min/Lutein [Certa Plus Tablet] 1 tab PO DAILY #30 tablet Mirtazapine [Remeron] 15 mg PO HS #30 tab QUEtiapine [Seroquel] 100 mg PO HS #30 tab traZODone [Desyrel] 50 mg PO HS PRN #30 tab PRN Reason: Insomnia - Smoking Cessation Smoking Cessation Medication prescribed: No - Antipsychotic Medications Pt discharged on 2 or more routine antipsychotic medications: No
[2018-02-01] MEDS ORDERED: Ergocalciferol 50,000 Intl Units Cap PO SCH (10:00)
== END 2018-01-31 08:22 | disposition home or self-care (01) | DRG 430 ==
LOC: C.ER 11:12 → C.7D 13:47 → C.9E 14:02 → C.5E 14:05
PROVIDERS: ADMIT Psychiatry & Neurology Psychiatry; ATTEND Psychiatry & Neurology Psychiatry
DX: F33.3 Major depressive disorder, recurrent, severe with psychotic symptoms (principal); F16.10 Hallucinogen abuse, uncomplicated; F14.20 Cocaine dependence, uncomplicated; G47.30 Sleep apnea, unspecified; R45.851 Suicidal ideations; Z87.891 Personal history of nicotine dependence; F10.10 Alcohol abuse, uncomplicated; F19.10 Other psychoactive substance abuse, uncomplicated

== ENCOUNTER 2018-04-05 13:38 | Inpatient (IN) | payer MEDICAID ==
[2018-04-05 13:49] VITALS: BMI 21.7
[2018-04-05 15:30] LABS: URINE BILIRUBIN NEGATIVE (NEGATIVE); URINE BLOOD NEGATIVE (NEGATIVE); URINE CLARITY Clear (Clear); URINE COLOR Straw (YELLOW); URINE GLUCOSE (UA) NORMAL (Normal); URINE LEUKOCYTE ESTERASE NEG Leu/uL (Negative); URINE PROTEIN NEGATIVE (NEGATIVE); URINE UROBILINOGEN NORMAL mg/dL (0.2-1.0)
--- NOTE | 2018-04-05 15:36 | C.PDOC ---
History Of Present Illness 42 y/o male presents to ED with c/o depression, hearing voices and is also requesting detox for alcohol abuse. Patient states his last alcoholic drink was earlier today. Patient admits to nausea. He denies abdominal pain, vomiting, diarrhea, chest pain, sob, palpitations, headache, dizziness or any other physical complaints. Time Seen by Provider: 04/05/18 14:07 Chief Complaint (Nursing): Substance Abuse History Per: Patient History/Exam Limitations: no limitations Onset/Duration Of Symptoms: Days Current Symptoms Are (Timing): Still Present Suicide/Self Injury Attempted (Context): None Modifying Factor(s): Alcohol Severity: Moderate Past Medical History Reviewed: Historical Data, Nursing Documentation, Vital Signs Vital Signs: Last Vital Signs Temp 98.3 F 04/07/18 06:17 Pulse 102 H 04/07/18 16:09 Resp 18 04/07/18 06:17 BP 118/84 04/07/18 16:09 Pulse Ox 100 04/05/18 18:14 - Medical History PMH: Anxiety, Back Problems, Bipolar Disorder, Depression, Schizophrenia, Sleep Apnea Surgical History: Appendectomy Family History: States: No Known Family Hx - Social History Hx Tobacco Use: Yes Hx Alcohol Use: Yes Hx Substance Use: Yes - Immunization History Hx Tetanus Toxoid Vaccination: No Hx Influenza Vaccination: Yes Hx Pneumococcal Vaccination: No Review Of Systems Constitutional: Negative for: Fever, Chills Cardiovascular: Negative for: Chest Pain Respiratory: Negative for: Shortness of Breath Gastrointestinal: Negative for: Nausea, Vomiting, Abdominal Pain, Diarrhea Skin: Negative for: Rash Psych: Positive for: Depression, Other (auditory hallucinations). Negative for : Suicidal ideation, Withdrawal Physical Exam - Physical Exam Appears: Non-toxic, No Acute Distress, Other (Tearful) Skin: Warm, Dry, No Rash Head: Atraumatic, Normacephalic Eye(s): bilateral: Normal Inspection Oral Mucosa: Moist Neck: Supple Cardiovascular: Rhythm Regular Respiratory: Normal Breath Sounds, No Rales, No Rhonchi, No Wheezing Gastrointestinal/Abdominal: Normal Exam, Bowel Sounds, Soft, No Tenderness Back: Normal Inspection, No CVA Tenderness Neurological/Psych: Oriented x3 ED Course And Treatment - Laboratory Results Result Diagrams: 04/05/18 16:25 04/05/18 16:25 O2 Sat by Pulse Oximetry: 99 (RA) Pulse Ox Interpretation: Normal Progress Note: Blood work, UA, UDS ordered and reviewed. Patient medically cleared. 17:29 - Patient accepted for psychiatric admission by Dr. Looney. Disposition - Disposition Disposition: HOSPITALIZED Disposition Time: 17:29 Condition: STABLE - Clinical Impression Clinical Impression: Depression, Schizophrenia - Scribe Statement The provider has reviewed the documentation as recorded by the Scribe Martina Gloria All medical record entries made by the Scribe were at my direction and personally dictated by me. I have reviewed the chart and agree that the record accurately reflects my personal performance of the history, physical exam, medical decision making, and the department course for this patient. I have also personally directed, reviewed, and agree with the discharge instructions and disposition. Decision To Admit - Pt Status Changed To: Hospital Disposition Of: Inpatient - Admit Certification Admit to Inpatient:: After my assessment, the patient will require hospitalization for at least two midnights. This is because of the severity of symptoms shown, intensity of services needed, and/or the medical risk in this patient being treated as an outpatient. - InPatient: Physician Admission Certification: I certify that this patient requires 2 or more midnights of care for the following reason:: see notes - . Bed Request Type: Psychiatry Admitting Physician: Arnel Looney Patient Diagnosis: Depression, Schizophrenia
[2018-04-05 16:07] LABS: BARBITURATES, UR NEGATIVE (NEGATIVE); BENZODIAZEPINES, UR NEGATIVE (NEGATIVE); OPIATES, UR NEGATIVE (NEGATIVE); PHENCYCLIDINE, UR NEGATIVE (NEGATIVE)
[2018-04-05 16:29] LABS: BASO # 0.1 K/uL (0.0-0.2); BASO % 0.8 % (0.0-2.0); EOS # 0.5 K/uL (0.0-0.7); EOS % 5.8 % (0.0-4.0); HEMOGLOBIN 13.6 g/dL (12.0-18.0); LYMPH # 2.5 K/uL (1.0-4.3); LYMPH % 28.3 % (20.0-40.0); MEAN CELL VOLUME 88.2 fL (80.0-94.0); MEAN CORPUSCULAR HEMOGLOBIN 29.6 pg (27.0-31.0); MEAN CORPUSCULAR HGB CONC 33.5 g/dL (33.0-37.0); MEAN PLATELET VOLUME 9.1 fL (7.2-11.7); MONO # 0.5 K/uL (0.0-0.8); MONO % 5.8 % (0.0-10.0); NEUT # 5.2 K/uL (1.8-7.0); NEUT % 59.3 % (50.0-75.0); NRBC % 0.1 % (0.0-2.0); RBC 4.6 Mil/uL (4.40-5.90); RED CELL DISTRIBUTION WIDTH 15.1 % (11.5-14.5); WHITE BLOOD COUNT 8.7 K/uL (4.8-10.8)
[2018-04-05 16:45] LABS: ALB/GLOB RATIO 1.4 (1.0-2.1); ALBUMIN 4.2 g/dL (3.5-5.0); ALT/SGPT 31 U/L (21-72); AST/SGOT 29 U/L (17-59); BLOOD UREA NITROGEN 14 mg/dL (9-20); CALCIUM 9.2 mg/dl (8.6-10.4); GFR AFRICAN-AMERICAN > 60; GFR NON-AFRICAN AMERICAN > 60
--- NOTE | 2018-04-05 21:06 | PCM.BM ---
<Garo Reyes - Last Filed: 04/05/18 21:05> Treatment Plan Problems - Problems identified on initial assessmt Depression Date Initiated: 04/05/18 Time Initiated: 18:25 Assessment reference: NA Status: Active Treatment assets and liabiliti Patient Assests: cooperative, motivated, self-reliant, ADL independent, negotiates basic needs, cognitively intact Patient Liabilities: substance abuse (Cocaine, ) - Milieu Protocol Maintain good personal hygiene: daily Encourage regular showers, daily Remind patient to perform daily oral care Conduct patient checks and document Observation sheet: Q15 minutes Maintain personal safety: every shift Educate patient to report safety concerns to staff, every shift Monitor environment for contraband/sharps Medication safety: Monitor for expected outcome, potential side effects: every shift, Assess barriers to learning: every shift, Assess readiness for medication education: every shift <Saritha Otero - Last Filed: 04/07/18 11:36> Family Contact Family involvement: Famliy/SO not involved - Goals for Treatment Patient goals for treatment: "I want to go to an [facility]." Discharge/Continuing Care - Education Needs Education Needs: Patient Medication, Patient Coping Skills - Discharge Discharge Criteria: Tolerates medication w/o severe side effects, No longer exhibiting s/s of withdrawal, Reduction of target symptoms Discharge to:: Home - Treatment Team Participation Discussed with Family/SO: No Was Patient/Family/SO present at Treatment Team Meeting: Yes
--- NOTE | 2018-04-06 10:11 | PCM.PSYCH ---
Initial Psychiatric Evaluation - Initial Psychiatric Evaluation Type of Admission: Voluntary Legal Status: Capacity Chief Complaint (in patient's own words): 'I was hearing voices.' History of Present Illness and Precipitating Events: Pt is a 42 year old single AA male referred by his machine adjuster leader case trim from [place] [facility] [place] [facility] [place] to reporting H/I towards his sister and girlfriend. Patient has a history of multiple inpatient psychiatric admissions, he was last discharge from [facility] few weeks ago ago. Pt reports a hx of schizophrenia and depression. Pt is currently under the care of JÚNIOR Zhao [place] [facility] [place] and the next appointment is tomorrow. Pt was referred to [facility] by his machine adjuster leader case trim from [facility]. Pt has his appointment for [facility] on 04/12/18 at 12:30pm. Pt reports he is compliant with his medications. He remained disorganized and internally preoccupied throughout the interview. As per the ED note, pt was not able to formulate his thoughts appropriately stating he needs to go to the "fifth floor" because "someone doing me wrong." Pt's machine adjuster leader case trim reports pt has disorganized thoughts and this is his baseline. Pt denies current S/I stating he had been feeling suicidal but it was not clear how recent. Pt is reporting H/I towards his sister and girlfriend. He reports he does have a plan to put "gasoline" on them. Pt reports poor sleep but no disturbance in appetite. He reports auditory and visual hallucinations and he remained paranoid. Pt denies current PCP and alcohol use. Pt reports his last use of PCP was 2 months ago. Pt reports last drink was last night but states it was only one time and previous to that it was 2 months ago. He also reports irritability and agitation. PMH None reported Current Medications: Active Medications Generic Name Dose Route Start Last Admin Trade Name Freq PRN Reason Stop Dose Admin Chlordiazepoxide 50 mg 04/05/18 20:08 Librium PO 04/06/18 20:09 Q6H PRN alcohol withdrawal Mirtazapine 15 mg 04/05/18 22:00 04/05/18 22:10 Remeron PO 15 mg HS YAEL Administration Quetiapine Fumarate 100 mg 04/05/18 22:00 04/05/18 22:10 Seroquel PO 100 mg HS YAEL Administration Trazodone HCl 50 mg 04/05/18 20:00 Desyrel PO HS PRN Insomnia Past Psychiatric History - Past Psychiatric History Previous Treatment History: Inpatient Pertinent Medical Hx (Current Medical&Sleep Prob, Allergies): Allergies Allergy/AdvReac Type Severity Reaction Status Date / Time No Known Allergies Allergy Verified 04/05/18 13:45 Folic Acid/Mv,Iron,Min/Lutein [Certa Plus Tablet] 1 tab PO DAILY #30 tablet 07/11 Mirtazapine [Remeron] 15 mg PO HS #30 tab 01/30/18 traZODone [Desyrel] 50 mg PO HS PRN #30 tab 01/30/18 Doxycycline Hyclate 100 mg PO BID 04/05/18 Quetiapine Fumarate [Seroquel] 200 mg PO DAILY 04/05/18 Review of Systems - Review of Systems All systems: reviewed and no additional remarkable complaints except Mental Status Examination - Personal Presentation Personal Presentation: Looks stated age - Affect Affect: Broad - Motor Activity Motor Activity: Psychomotor Agitation - Reliability in Providing Information Reliability in Providing Information: Poor, due to alteration in thoughts, Poor , due to altered mood - Speech Speech: Disorganized - Mood Mood: Anxious - Formal Thought Process Formal Thought Process: Hallucinations, Delusions, Paranoia, Loosening of associations, Flight of ideas - Hallucinations/Delusions Hallucinations: Auditory Delusions: Persecution - Obsessions/Compulsions Obsessions: No Compulsions: No - Cognitive Functions Orientation: Person, Place, Situation, Time Sensorium: Alert Attention/Concentration: Attentive Abstract Thinking: [place] Estimate of Intelligence: Below average Judgement: Imparied, as evidence by: Poor judgement, Imparied, as evidence by: Lack of insight into illness - Risk Risk: Homicidal, Diminished functioning - Limitations Limitations: Living alone DSM 5 DX - DSM 5 DSM 5 Diagnosis: Schizoaffective disorder bipolar type Alcohol use disorder moderate Cocaine use disorder moderate PCP use disorder moderate - Recommended/Plan of Treatment Treatment Recommendations and Plan of Treatment: Schizoaffective disorder bipolar type -CBT -Psychoeducation -Supportive therapy, group therapy, individual therapy -Haldol 5 mg by mouth twice a day -Cogentin 1 mg by mouth twice a day -Depakote 250 mg by mouth twice a day -Trazodone 50 mg by mouth daily at bedtime -Hydroxyzine 25 mg by mouth every 6 hours when necessary -Seroquel 100 mg PO QHS -Gabapentin 100 mg po TID -Remeron 15 mg PO QHS Alcohol use disorder moderate -CBT -Psychoeducation -Supportive therapy, individual therapy -Use AZ for abstinence -Librium when necessary Cocaine use disorder moderate -Monitor signs and symptoms -Use AZ for abstinence PCP use disorder moderate -Monitor signs and symptoms -Use AZ for abstinence
[2018-04-06] MEDS: Divalproex 250 mg DR Tab PO SCH (17:05)
[2018-04-07] MEDS: Divalproex 250 mg DR Tab PO SCH ×2 (09:11→17:31)
[2018-04-08 06:29] VITALS: O2SAT 97
[2018-04-08] MEDS: Divalproex 250 mg DR Tab PO SCH ×2 (09:05→17:34)
--- NOTE | 2018-04-08 22:31 | PCM.PYCHPN ---
Psychiatric Progress Note - Psychiatric Progress Note Patient seen today, length of contact: 16 min Patient Chief Complaint: "Not well" Problems Identified/Issues Discussed: The pt is seen, chart reviewed, case discussed with staff. The pt is compliant with medications and reports no side-effects. Symptoms are improving but needs more time to stabilize. After care discussed, support and psychoeducation given. Medication Change: Yes Medical Record Reviewed: Yes Mental Status Examination - Cognitive Function Orientation: Person, Place, Situation, Time Memory: Intact Attention: WNL Concentration: Poor Association: WNL Fund of Knowledge: WNL - Mood Mood: Anxious - Affect Affect: Broad - Speech Speech: Appropriate - Formal Thought Process Formal Thought Process: Hallucinations, Delusions, Paranoia, Loosening of associations, Flight of ideas - Suicidal Ideation Suicidal Ideation: No - Homicidal Ideation Homicidal Ideation: No Goal/Treatment Plan - Goal/Treatment Plan Need for Continued Stay: Discharge may exacerbated symptoms, Severe functional impairment Progress Toward Problem(s) and Goals/Treatment Plan: Continue medications, make adjustments Support and psychoeducation daily Attend groups and activities daily After care planning by ASHLEY
--- NOTE | 2018-04-08 22:48 | PCM.PYCHPN ---
Psychiatric Progress Note - Psychiatric Progress Note Patient seen today, length of contact: 15 min Patient Chief Complaint: "OK" Problems Identified/Issues Discussed: The pt is seen, chart reviewed, case discussed with staff. Support given. No new symptoms reported, improving slowly and needs more time No SEs from medications, risks discussed. After care discussed Medication Change: Yes (increase depakote) Medical Record Reviewed: Yes Mental Status Examination - Cognitive Function Orientation: Person, Place, Situation, Time Memory: Intact Attention: WNL Concentration: Poor Association: WNL Fund of Knowledge: WNL - Mood Mood: Anxious - Affect Affect: Broad - Speech Speech: Appropriate - Formal Thought Process Formal Thought Process: Hallucinations, Delusions, Paranoia, Loosening of associations, Flight of ideas - Suicidal Ideation Suicidal Ideation: No - Homicidal Ideation Homicidal Ideation: No Goal/Treatment Plan - Goal/Treatment Plan Need for Continued Stay: Discharge may exacerbated symptoms, Severe functional impairment Progress Toward Problem(s) and Goals/Treatment Plan: Continue medications, make adjustments Support and psychoeducation daily Attend groups and activities daily After care planning by ASHLEY, wants to go to [facility]
[2018-04-09] MEDS: Divalproex 250 mg DR Tab PO SCH ×2 (09:09→17:21)
--- NOTE | 2018-04-09 11:41 | PCM.PYCHPN ---
Psychiatric Progress Note - Psychiatric Progress Note Patient seen today, length of contact: 16 min Patient Chief Complaint: "Sleep not good" Problems Identified/Issues Discussed: The pt is seen, chart reviewed, case discussed with staff. The pt is compliant with medications and reports no side-effects. Symptoms are improving but needs more time to stabilize. After care discussed, support and psychoeducation given. Medication Change: No Medical Record Reviewed: Yes Mental Status Examination - Cognitive Function Orientation: Person, Place, Situation, Time Memory: Intact Attention: WNL Concentration: Poor Association: WNL Fund of Knowledge: WNL - Mood Mood: Anxious - Affect Affect: Broad - Speech Speech: Appropriate - Formal Thought Process Formal Thought Process: Hallucinations, Delusions, Paranoia, Loosening of associations, Flight of ideas - Suicidal Ideation Suicidal Ideation: No - Homicidal Ideation Homicidal Ideation: No Goal/Treatment Plan - Goal/Treatment Plan Need for Continued Stay: Discharge may exacerbated symptoms, Severe functional impairment Progress Toward Problem(s) and Goals/Treatment Plan: Continue medications, make adjustments Support and psychoeducation daily Attend groups and activities daily After care planning by ASHLEY, wants to go to [facility]
[2018-04-10] MEDS: Divalproex 250 mg DR Tab PO SCH ×2 (09:56→17:00)
--- NOTE | 2018-04-10 10:03 | PCM.PYCHPN ---
Psychiatric Progress Note - Psychiatric Progress Note Patient seen today, length of contact: 16 min Patient Chief Complaint: 'I was hearing voices.' Medication Change: No Medical Record Reviewed: Yes Mental Status Examination - Cognitive Function Orientation: Person, Place, Situation, Time Memory: Intact Attention: WNL Concentration: Poor Association: WNL Fund of Knowledge: WNL - Mood Mood: Anxious - Affect Affect: Broad - Speech Speech: Appropriate - Formal Thought Process Formal Thought Process: Hallucinations, Delusions, Paranoia, Loosening of associations, Flight of ideas - Suicidal Ideation Suicidal Ideation: No - Homicidal Ideation Homicidal Ideation: No Goal/Treatment Plan - Goal/Treatment Plan Need for Continued Stay: Discharge may exacerbated symptoms, Severe functional impairment Progress Toward Problem(s) and Goals/Treatment Plan: Schizoaffective disorder bipolar type -CBT -Psychoeducation -Supportive therapy, group therapy, individual therapy -Haldol 5 mg by mouth twice a day -Cogentin 1 mg by mouth twice a day -Depakote 250 mg by mouth twice a day -Trazodone 50 mg by mouth daily at bedtime -Hydroxyzine 25 mg by mouth every 6 hours when necessary -Seroquel 100 mg PO QHS -Gabapentin 100 mg po TID -Remeron 15 mg PO QHS Alcohol use disorder moderate -CBT -Psychoeducation -Supportive therapy, individual therapy -Use [place] for abstinence -Librium when necessary Cocaine use disorder moderate -Monitor signs and symptoms -Use AK for abstinence PCP use disorder moderate -Monitor signs and symptoms -Use AK for abstinence
[2018-04-10] MEDS: Aluminum Hydroxide/Magnesium Hydroxide Susp (30 mL) PO PRN ×2 (14:25→17:27)
[2018-04-11 06:42] VITALS: RESP 20
[2018-04-11] MEDS: Divalproex 250 mg DR Tab PO SCH ×2 (09:51→17:24)
--- NOTE | 2018-04-11 17:30 | PCM.PYCHPN ---
Psychiatric Progress Note - Psychiatric Progress Note Patient seen today, length of contact: 16 min Patient Chief Complaint: 'I was hearing voices.' Medication Change: No Medical Record Reviewed: Yes Mental Status Examination - Cognitive Function Orientation: Person, Place, Situation, Time Memory: Intact Attention: WNL Concentration: Poor Association: WNL Fund of Knowledge: WNL - Mood Mood: Anxious - Affect Affect: Broad - Speech Speech: Appropriate - Formal Thought Process Formal Thought Process: Hallucinations, Delusions, Paranoia, Loosening of associations, Flight of ideas - Suicidal Ideation Suicidal Ideation: No - Homicidal Ideation Homicidal Ideation: No Goal/Treatment Plan - Goal/Treatment Plan Need for Continued Stay: Discharge may exacerbated symptoms, Severe functional impairment Progress Toward Problem(s) and Goals/Treatment Plan: Schizoaffective disorder bipolar type -CBT -Psychoeducation -Supportive therapy, group therapy, individual therapy -Haldol 5 mg by mouth twice a day -Cogentin 1 mg by mouth twice a day -Depakote 250 mg by mouth twice a day -Trazodone 50 mg by mouth daily at bedtime -Hydroxyzine 25 mg by mouth every 6 hours when necessary -Seroquel 100 mg PO QHS -Gabapentin 100 mg po TID -Remeron 15 mg PO QHS Alcohol use disorder moderate -CBT -Psychoeducation -Supportive therapy, individual therapy -Use [place] for abstinence -Librium when necessary Cocaine use disorder moderate -Monitor signs and symptoms -Use NE for abstinence PCP use disorder moderate -Monitor signs and symptoms -Use NE for abstinence
[2018-04-12 06:18] VITALS: BP 108/74; PULSE 76; TEMP 98.4
--- NOTE | 2018-04-12 10:10 | PCM.PYCHDC ---
Mental Status Examination - Mental Status Examination Orientation: Person, Place, Situation, Time Memory: Intact Mood: Neutral Affect: Constricted Speech: Soft Attention: WNL Concentration: WNL Association: WNL Fund of Knowledge: WNL Formal Thought Process: No Impairment Description of patient's judgement and insight: good, fair Psychotic Thoughts and Behaviors: denies any AVH Suicidal Ideation: No Current Homicidal Ideation?: No Discharge Summary - Discharge Note Reason for Hospitalization: Pt is a 42 year old single AA male referred by his welfare case worker [place] [facility] [place] [facility] [place] reporting H/I towards his sister and girlfriend. Patient has a history of multiple inpatient psychiatric admissions, he was last discharge from [facility] few weeks ago ago. Pt reports a hx of schizophrenia and depression. Pt is currently under the care of JÚNIOR Zhao [place] [facility] and the next appointment is tomorrow. Pt was referred to [facility] by his welfare case worker from [facility]. Pt has his appointment for [facility] on 04/12/18 at 12:30pm. Pt reports he is compliant with his medications. He remained disorganized and internally preoccupied throughout the interview. As per the ED note, pt was not able to formulate his thoughts appropriately stating he needs to go to the "fifth floor" because "someone doing me wrong." Pt's welfare case worker reports pt has disorganized thoughts and this is his baseline. Pt denies current S/I stating he had been feeling suicidal but it was not clear how recent. Pt is reporting H/I towards his sister and girlfriend. He reports he does have a plan to put "gasoline" on them. Pt reports poor sleep but no disturbance in appetite. He reports auditory and visual hallucinations and he remained paranoid. Pt denies current PCP and alcohol use. Pt reports his last use of PCP was 2 months ago. Pt reports last drink was last night but states it was only one time and previous to that it was 2 months ago. He also reports irritability and agitation. Consultations:: List each consultation separately and include: 1. Reason for request. 2. Findings. 3. Follow-up Summary of Hospital Course include:: 1. Description of specific treatment plan utilized for patients during their course of treatmen. 2. Summarize the time- course for resolution of acute symptoms and/or regressed behaviors. 3. Describe issues identified and worked on during hospitalization. 4. Describe medication utilized. 5. Describe medical problems identified and treated. 6. Reassessment of suicide risk Summary of Hospital Course: Pt is a 42 year old single AA male referred by his welfare case worker from the [facility] [place] [facility] due to reporting H/I towards his sister and girlfriend. Patient has a history of multiple inpatient psychiatric admissions, he was last discharge from [facility] few weeks ago ago. Pt reports a hx of schizophrenia and depression. Pt is currently under the care of JÚNIOR Zhao at [facility] and the next appointment is tomorrow. Pt was referred to [facility] by his welfare case worker from [facility]. Pt has his appointment for [facility] on 04/12/18 at 12:30pm. Pt reports he is compliant with his medications. He remained disorganized and internally preoccupied throughout the interview. As per the ED note, pt was not able to formulate his thoughts appropriately stating he needs to go to the "fifth floor" because "someone doing me wrong." Pt's welfare case worker reports pt has disorganized thoughts and this is his baseline. Pt denies current S/I stating he had been feeling suicidal but it was not clear how recent. Pt is reporting H/I towards his sister and girlfriend. He reports he does have a plan to put "gasoline" on them. Pt reports poor sleep but no disturbance in appetite. He reports auditory and visual hallucinations and he remained paranoid. Pt denies current PCP and alcohol use. Pt reports his last use of PCP was 2 months ago. Pt reports last drink was last night but states it was only one time and previous to that it was 2 months ago. He also reports irritability and agitation. PMH None reported - Final Diagnosis (DSM 5) Condition upon Discharge: STABLE DSM 5: Schizoaffective disorder bipolar type Alcohol use disorder moderate Cocaine use disorder moderate PCP use disorder moderate Disposition: HOME/ ROUTINE Follow-up Treatment Plan: Schizoaffective disorder bipolar type -CBT -Psychoeducation -Supportive therapy, group therapy, individual therapy -Haldol 5 mg by mouth twice a day -Cogentin 1 mg by mouth twice a day -Depakote 250 mg by mouth twice a day -Trazodone 50 mg by mouth daily at bedtime -Hydroxyzine 25 mg by mouth every 6 hours when necessary -Seroquel 100 mg PO QHS -Gabapentin 100 mg po TID -Remeron 15 mg PO QHS Alcohol use disorder moderate -CBT -Psychoeducation -Supportive therapy, individual therapy -Use [place] for abstinence -Librium when necessary Cocaine use disorder moderate -Monitor signs and symptoms -Use VA for abstinence PCP use disorder moderate -Monitor signs and symptoms -Use VA for abstinence Prescriptions/Medication Reconciliation: Benztropine [Cogentin] 1 mg PO HS #30 tab Divalproex [Depakote DR] 500 mg PO BID #60 tcp Haloperidol [Haldol] 10 mg PO HS #30 tab QUEtiapine [SEROquel] 200 mg PO HS #30 tab - Smoking Cessation Smoking Cessation Medication prescribed: No - Antipsychotic Medications Pt discharged on 2 or more routine antipsychotic medications: No
[2018-04-12] MEDS: Divalproex 250 mg DR Tab PO SCH (10:14)
== END 2018-04-12 10:20 | disposition home or self-care (01) | DRG 430 ==
LOC: C.ER 13:38 → C.5E 17:29
PROVIDERS: ADMIT Psychiatry & Neurology Psychiatry; ATTEND Psychiatry & Neurology Psychiatry
DX: F25.0 Schizoaffective disorder, bipolar type (principal); F16.10 Hallucinogen abuse, uncomplicated; F14.10 Cocaine abuse, uncomplicated; G47.30 Sleep apnea, unspecified; F10.10 Alcohol abuse, uncomplicated; Z87.891 Personal history of nicotine dependence

== ENCOUNTER 2018-10-20 12:43 | Inpatient (IN) | payer MEDICAID ==
[2018-10-20 12:43] VITALS: BMI 21.7
--- NOTE | 2018-10-20 13:56 | C.PDOC ---
History Of Present Illness 42 y/o male prescreened for detox, stating that he abuses alcohol and crack cocaine. Patient states he drinks 6-12 beers and a pint of vodka daily. Patient reports drinking half a pint of vodka last night and hasnt used crack cocaine for a week. Patient has no physical complaints but reports SI and HI. Time Seen by Provider: 10/20/18 13:28 Chief Complaint (Nursing): Substance Abuse History Per: Patient History/Exam Limitations: no limitations Onset/Duration Of Symptoms: Days Current Symptoms Are (Timing): Still Present Past Medical History Reviewed: Historical Data, Nursing Documentation, Vital Signs Vital Signs: Last Vital Signs Temp 98.5 F 10/20/18 13:11 Pulse 89 10/20/18 13:11 Resp 18 10/20/18 13:11 BP 118/88 10/20/18 13:11 Pulse Ox 99 10/20/18 13:11 - Medical History PMH: Anxiety, Back Problems, Bipolar Disorder, Depression, Schizophrenia, Sleep Apnea Denies: Diabetes, Hepatitis, HIV, HTN, Chronic Kidney Disease, Seizures, Sexually Transmitted Disease Surgical History: Appendectomy Family History: States: No Known Family Hx - Social History Hx Tobacco Use: Yes Hx Alcohol Use: Yes Hx Substance Use: Yes - Immunization History Hx Tetanus Toxoid Vaccination: No Hx Influenza Vaccination: No Hx Pneumococcal Vaccination: No Review Of Systems Constitutional: Negative for: Fever Cardiovascular: Negative for: Chest Pain Respiratory: Negative for: Shortness of Breath Gastrointestinal: Negative for: Nausea, Diarrhea Skin: Negative for: Rash Psych: Positive for: Suicidal ideation, Other (Alcoholic; +homicidal ideation) Physical Exam - Physical Exam Appears: Non-toxic, No Acute Distress Skin: Warm, Dry Head: Atraumatic, Normacephalic Eye(s): bilateral: Normal Inspection, PERRL, EOMI Oral Mucosa: Moist Neck: Supple Chest: Symmetrical Cardiovascular: Rhythm Regular, No Murmur Respiratory: Normal Breath Sounds, No Rales, No Rhonchi, No Wheezing Gastrointestinal/Abdominal: Soft, No Tenderness Extremity: Bilateral: Atraumatic, Normal Color And Temperature, Normal ROM Neurological/Psych: Oriented x3, Normal Speech ED Course And Treatment - Laboratory Results Result Diagrams: 10/20/18 14:07 10/20/18 14:07 O2 Sat by Pulse Oximetry: 99 (RA) Pulse Ox Interpretation: Normal Medical Decision Making Medical Decision Making: Plan: --Bloodwork --Urinalysis --Nicoderm Patient medically cleared. Crisis evaluated patient, admit to Dr. Looney for detox. Disposition - Disposition Disposition: HOSPITALIZED Disposition Time: 13:28 Condition: STABLE - Clinical Impression Clinical Impression: Alcohol abuse - Scribe Statement The provider has reviewed the documentation as recorded by the Rolandoibdarrion Conte Provider Attestation: All medical record entries made by the Rolandoibdarrion were at my direction and personally dictated by me. I have reviewed the chart and agree that the record accurately reflects my personal performance of the history, physical exam, medical decision making, and the department course for this patient. I have also personally directed, reviewed, and agree with the discharge instructions and disposition.
[2018-10-20 14:12] LABS: BASO # 0.1 K/uL (0.0-0.2); BASO % 1.1 % (0.0-2.0); EOS # 0.5 K/uL (0.0-0.7); EOS % 5.9 % (0.0-4.0); LYMPH # 2.7 K/uL (1.0-4.3); LYMPH % 30.6 % (20.0-40.0); MEAN CELL VOLUME 90.8 fL (80.0-94.0); MEAN CORPUSCULAR HEMOGLOBIN 29.9 pg (27.0-31.0); MEAN PLATELET VOLUME 8.6 fL (7.2-11.7); MONO # 0.7 K/uL (0.0-0.8); MONO % 8.5 % (0.0-10.0); NEUT # 4.8 K/uL (1.8-7.0); NEUT % 53.9 % (50.0-75.0); RBC 4.68 Mil/uL (4.40-5.90); RED CELL DISTRIBUTION WIDTH 14.7 % (11.5-14.5); WHITE BLOOD COUNT 8.8 K/uL (4.8-10.8)
[2018-10-20 14:21] LABS: SQUAMOUS EPITHIAL < 1 /hpf (0-5); URINE BILIRUBIN NEGATIVE (NEGATIVE); URINE BLOOD NEGATIVE (NEGATIVE); URINE CLARITY Clear (Clear); URINE COLOR Yellow (YELLOW); URINE GLUCOSE (UA) NORMAL (Normal); URINE LEUKOCYTE ESTERASE NEG Leu/uL (Negative); URINE PROTEIN NEGATIVE (NEGATIVE); URINE UROBILINOGEN NORMAL mg/dL (0.2-1.0)
[2018-10-20 14:33] LABS: ALB/GLOB RATIO 1.6 (1.0-2.1); ALBUMIN 4.5 g/dL (3.5-5.0); ALT/SGPT 18 U/L (21-72); AST/SGOT 30 U/L (17-59); BLOOD UREA NITROGEN 13 mg/dL (9-20); GFR NON-AFRICAN AMERICAN > 60
[2018-10-20 14:45] LABS: BARBITURATES, UR NEGATIVE (NEGATIVE); BENZODIAZEPINES, UR NEGATIVE (NEGATIVE); OPIATES, UR NEGATIVE (NEGATIVE); PHENCYCLIDINE, UR NEGATIVE (NEGATIVE)
--- NOTE | 2018-10-20 15:55 | PCM.BM ---
<Marek Liang - Last Filed: 10/20/18 15:54> Treatment Plan Problems - Problems identified on initial assessmt potential for alcohol withdrawal Date Initiated: 10/20/18 Time Initiated: 15:54 Status: Active Treatment assets and liabiliti Patient Assests: cooperative, motivated, self-reliant, ADL independent, negotiates basic needs, cognitively intact Patient Liabilities: substance abuse, medical problems - Milieu Protocol Maintain good personal hygiene: daily Encourage regular showers, daily Remind patient to perform daily oral care, daily Assist patient to perform ADL's Conduct patient checks and document Observation sheet: Q15 minutes Maintain personal safety: every shift Educate patient to report safety concerns to staff, every shift Monitor environment for contraband/sharps Medication safety: Monitor for expected outcome, potential side effects: every shift, Assess barriers to learning: every shift, Assess readiness for medication education: every shift <Jas Carson - Last Filed: 10/23/18 17:37> - Diagnosis (1) Alcohol use disorder, severe, dependence Status: Acute Interventions: 10/23/18 17:36 * Assess 7x/week regarding severity of withdrawal * Educate regarding risks, benefits, side effects and alternatives of medications * Use Motivational Interviewing for abstinence * Use CBT for relapse prevention * Medication management for withdrawal symptoms * Encourage medication assisted treatment (2) Cocaine use disorder, severe, dependence Status: Acute Interventions: 10/23/18 17:36 * Assess 7x/week regarding severity of withdrawal * Educate regarding risks, benefits, side effects and alternatives of medications * Use Motivational Interviewing for abstinence * Use CBT for relapse prevention * Medication management for withdrawal symptoms * Encourage medication assisted treatment (3) Phencyclidine (PCP) use disorder, severe Status: Acute Interventions: 10/23/18 17:37 * Assess 7x/week regarding severity of withdrawal * Educate regarding risks, benefits, side effects and alternatives of medications * Use Motivational Interviewing for abstinence * Use CBT for relapse prevention * Medication management for withdrawal symptoms * Encourage medication assisted treatment (4) Schizoaffective disorder, bipolar type Status: Acute Interventions: 10/23/18 17:37 * Assess/adjust medications daily and /or as needed * See patient on an individual basis 7x/week to assess status of hallucinations * Discuss risks, benefits, side effects and alternatives of medications <Laisha Harden - Last Filed: 10/25/18 09:29> Family Contact Family involvement: No known Family/SO - Goals for Treatment Patient goals for treatment: Complete detox and transition to IOP. Discharge/Continuing Care - Education Needs Education Needs: Patient Medication, Patient Diagnosis/Disease Process, Patient Coping Skills, Patient Anger Management skills, Patient Placement options, Patient Community resources - Discharge Discharge Criteria: No longer exhibiting s/s of withdrawal, Reduction of target symptoms Discharge to:: Home - Treatment Team Participation Patient/Family/SO Statement: 10/25/18 09:29 "I wanna go back to [facility]..." Discussed with Family/SO: No Was Patient/Family/SO present at Treatment Team Meeting: Yes
[2018-10-20] MEDS ORDERED: Magnesium Hydroxide Susp 30 ml UD PO PRN (16:57)
[2018-10-20] MEDS ORDERED: Aluminum Hydroxide/Magnesium Hydroxide Susp (30 mL) PO PRN (16:57)
[2018-10-21] MEDS ORDERED: Influenza Vaccine 60 MCG/0.5 ML SYR (3 yr & up) IM ONE (09:27)
[2018-10-21] MEDS: Multiple Vitamins Tab PO SCH (09:29)
[2018-10-21] MEDS ORDERED: Pneumococcal 23-Valent Vaccine IM ONE (09:45)
--- NOTE | 2018-10-21 10:55 | PCM.PSYCH ---
Initial Psychiatric Evaluation - Initial Psychiatric Evaluation Type of Admission: Voluntary Legal Status: Capacity Chief Complaint (in patient's own words): I came in to get help in detox.' History of Present Illness and Precipitating Events: This is a 42 years old single -Citizen Of [place] male, who came to the ED to get help and alcohol detox. Guide Dog Trainer is familiar with with this patient. Patient has a long history of schizophrenia, as well as history of alcohol use, cocaine use and PCP use disorder. Patient has a long history of inpatient psychiatric hospitalizations. He was last discharged from [facility] in March. As per the patient he is following up with a [facility]. However he relapsed on drinking and recently he became noncompliant with her medications as well. Patient reports that he is drinking from 6 pack of beer and a pint to a 12 pack of beer and 1 pint of alcohol daily. Patient reports that his last drank was yesterday. He reports withdrawal symptoms, including tremors, anxiety, nausea, shakes, headaches, sweats and restlessness. He reports auditory hallucinations, hearing voices off and on, all the time. He also reports of paranoia. He reports at times anxiety and depressed mood but denies any feelings of hopelessness or helplessness or worthlessness. He denies any suicidal ideation or any homicidal ideation. He reports of smoking cocaine and PCP, last abuse was almost 5 days ago. He denies any visual hallucinations. Past medical history None reported Current Medications: Active Medications Generic Name Dose Route Start Last Admin Trade Name Freq PRN Reason Stop Dose Admin Al Hydrox/Mg Hydrox/Simethicone 30 ml 10/20/18 16:57 Maalox 30 Ml PO TID PRN Indigestion / Heartburn Chlordiazepoxide 25 mg 10/20/18 16:55 Librium PO Q4H PRN Alcohol Withdrawal Clonidine HCl 0.1 mg 10/20/18 16:57 10/20/18 19:29 Catapres PO 0.1 mg Q4 PRN Administration COWS Score More or Equal to 5 Dicyclomine HCl 10 mg 10/20/18 16:57 10/20/18 19:30 Bentyl PO 10 mg Q6 PRN Administration Muscle spasm Folic Acid 1 mg 10/21/18 10:00 10/21/18 09:29 Folic Acid PO 1 mg DAILY YAEL Administration Gabapentin 300 mg 10/21/18 10:00 10/21/18 09:29 Neurontin PO 300 mg BID YAEL Administration Hydroxyzine HCl 25 mg 10/20/18 16:59 10/20/18 19:29 Atarax PO 25 mg Q6 PRN Administration Anxiety Ibuprofen 600 mg 10/20/18 16:57 10/20/18 19:29 Motrin Tab PO 600 mg Q6 PRN Administration Pain, moderate (4-7) Loperamide HCl 2 mg 10/20/18 16:57 Imodium PO Q8 PRN Diarrhea Magnesium Hydroxide 30 ml 10/20/18 16:57 Milk Of Magnesia PO 10/22/18 18:01 BID PRN Constipation Multivitamins 1 tab 10/21/18 10:00 10/21/18 09:29 Hexavitamin PO 1 tab DAILY YAEL Administration Nicotine 1 patch 10/21/18 10:00 10/21/18 09:29 Nicoderm Cq TD 1 patch DAILY YAEL Administration Ondansetron HCl 4 mg 10/20/18 16:57 Zofran Tab PO Q8 PRN Nausea/Vomiting Thiamine HCl 100 mg 10/21/18 10:00 10/21/18 09:29 Vitamin B1 Tab PO 100 mg DAILY YAEL Administration Trazodone HCl 50 mg 10/20/18 16:55 Desyrel PO HS PRN Insomnia Past Psychiatric History - Past Psychiatric History Previous Treatment History: Inpatient Pertinent Medical Hx (Current Medical&Sleep Prob, Allergies): Allergies Allergy/AdvReac Type Severity Reaction Status Date / Time No Known Allergies Allergy Verified 10/20/18 13:14 Folic Acid/Mv,Iron,Min/Lutein [Certa Plus Tablet] 1 tab PO DAILY #30 tablet 01/30/18 Mirtazapine [Remeron] 15 mg PO HS #30 tab 01/30/18 traZODone [Desyrel] 50 mg PO HS PRN #30 tab 01/30/18 Doxycycline Hyclate 100 mg PO BID 04/05/18 Quetiapine Fumarate [Seroquel] 200 mg PO DAILY 04/05/18 Benztropine [Cogentin] 1 mg PO HS #30 tab 04/12/18 Divalproex [Depakote DR] 500 mg PO BID #60 tcp 04/12/18 Haloperidol [Haldol] 10 mg PO HS #30 tab 04/12/18 QUEtiapine [SEROquel] 200 mg PO HS #30 tab 04/12/18 Review of Systems - Review of Systems All systems: reviewed and no additional remarkable complaints except - Psychiatric Psychiatric: Anxiety, Irritability Mental Status Examination - Personal Presentation Personal Presentation: Looks stated age - Affect Affect: Constricted - Motor Activity Motor Activity: Calm - Reliability in Providing Information Reliability in Providing Information: Fair - Speech Speech: Organized - Mood Mood: Anxious - Formal Thought Process Formal Thought Process: Hallucinations, Paranoia - Hallucinations/Delusions Hallucinations: Auditory Delusions: Persecution - Obsessions/Compulsions Obsessions: No Compulsions: No - Cognitive Functions Orientation: Person, Place, Situation, Time Sensorium: Alert Attention/Concentration: Attentive Abstract Thinking: [place] Estimate of Intelligence: Below average Judgement: Imparied, as evidence by: Poor judgement, Intact, as evidence by: Insight regarding need for hospitalization - Risk Risk: Withdrawal, Diminished functioning - Limitations Limitations: Living alone DSM 5 DX - DSM 5 DSM 5 Diagnosis: Alcohol use disorder severe Alcohol withdrawal Cocaine use disorder severe PCP use disorder severe Schizoaffective disorder bipolar type - Recommended/Plan of Treatment Treatment Recommendations and Plan of Treatment: Alcohol use disorder severe Alcohol withdrawal Cocaine use disorder severe PCP use disorder severe Schizoaffective disorder bipolar type CBT Psychoeducation Supportive therapy and group therapy Haldol 5 mg p.o. twice daily Seroquel 200 mg p.o. nightly Prozac 40 mg p.o. daily Librium taper Hydroxyzine 25 mg p.o. every 6 hours as needed Remeron 15 mg p.o. nightly Trazodone 50 mg p.o. nightly
--- NOTE | 2018-10-22 08:29 | PCM.PYCHPN ---
Psychiatric Progress Note - Psychiatric Progress Note Patient Chief Complaint: I came in to get help in detox.' Mental Status Examination - Cognitive Function Orientation: Person, Place, Situation, Time - Mood Mood: Anxious - Affect Affect: Constricted - Formal Thought Process Formal Thought Process: Hallucinations, Paranoia - Homicidal Ideation Homicidal Ideation: Yes Goal/Treatment Plan - Goal/Treatment Plan Progress Toward Problem(s) and Goals/Treatment Plan: Alcohol use disorder severe Alcohol withdrawal Cocaine use disorder severe PCP use disorder severe Schizoaffective disorder bipolar type CBT Psychoeducation Supportive therapy and group therapy Haldol 5 mg p.o. twice daily Seroquel 200 mg p.o. nightly Prozac 40 mg p.o. daily Librium taper Hydroxyzine 25 mg p.o. every 6 hours as needed Remeron 15 mg p.o. nightly Trazodone 50 mg p.o. nightly
[2018-10-22] MEDS: Multiple Vitamins Tab PO SCH (09:32)
[2018-10-23] MEDS: Multiple Vitamins Tab PO SCH (09:57)
[2018-10-23] MEDS ORDERED: Pneumococcal 23-Valent Vaccine IM ONE (10:00)
--- NOTE | 2018-10-23 17:30 | PCM.PYCHPN ---
Psychiatric Progress Note - Psychiatric Progress Note Patient seen today, length of contact: 15 minutes Patient Chief Complaint: I'm feeling little better. Problems Identified/Issues Discussed: Patient seen, chart reviewed, case discussed with the staff. Issues related to illness and treatment were discussed with the patient. Reported compliant with treatment with no adverse affects. Tolerating treatment very well. Patient reported still having some withdrawal symptoms including shaking in his hands, sleeping difficulty, body aches and dizziness. Mood reported as anxious. Affect appropriate. Speech soft with good eye contact. Patient was awake, alert and oriented 3. Calm and cooperative. Aftercare discussed with the patient. Patient needs more time for stabilization. Patient denied any delusions, no auditory or visual hallucinations, no suicidal ideations or homicidal ideations at the time of evaluation. Medical Problems: None reported Diagnostic Results: Reviewed DSM 5 Symptoms Update: Some improvement with treatment. Medication Change: No Medical Record Reviewed: Yes Mental Status Examination - Cognitive Function Orientation: Person, Place, Situation, Time Memory: Intact Attention: WNL Concentration: WNL Association: [facility] Fund of Knowledge: [facility] Decription of patient's judgement and insights: Fair - Mood Mood: Anxious (Less than before) - Affect Affect: Other (Appropriate) - Speech Speech: Appropriate - Formal Thought Process Formal Thought Process: No Impairment - Suicidal Ideation Suicidal Ideation: No - Homicidal Ideation Homicidal Ideation: No Goal/Treatment Plan - Goal/Treatment Plan Need for Continued Stay: Remain at risks for inpatient hospitalization, Discharge may exacerbated symptoms, Severe functional impairment Progress Toward Problem(s) and Goals/Treatment Plan: Patient education. Supportive therapy. CBT for relapse prevention. GA for abstinence. Continue treatment as before. Estimated Date of D/C: 10/25/18 - Smoking Cessation Smoking Cessation Initiated: Yes
[2018-10-24 09:34] VITALS: RESP 18
[2018-10-24] MEDS: Multiple Vitamins Tab PO SCH (09:38)
--- NOTE | 2018-10-24 21:50 | PCM.PYCHPN ---
Psychiatric Progress Note - Psychiatric Progress Note Patient seen today, length of contact: 15 minutes Patient Chief Complaint: I'm feeling better. Problems Identified/Issues Discussed: Patient seen, chart reviewed, case discussed with the staff. Issues related to illness and treatment were discussed with the patient. Reported compliant with treatment with no adverse affects. Tolerating treatment very well. Patient reported feeling better. Mood reported as anxious. Affect appropriate. Speech soft with good eye contact. Patient was awake, alert and oriented 3. Calm and cooperative. Aftercare discussed with the patient. Patient needs more time for stabilization. Patient denied any delusions, no auditory or visual hallucinations, no suicidal ideations or homicidal ideations at the time of evaluation. Medical Problems: None reported Diagnostic Results: Reviewed DSM 5 Symptoms Update: Improving with treatment. Medication Change: No Medical Record Reviewed: Yes Mental Status Examination - Cognitive Function Orientation: Person, Place, Situation, Time Memory: Intact Attention: WNL Concentration: WNL Association: [facility] Fund of Knowledge: [facility] Decription of patient's judgement and insights: Fair - Mood Mood: Anxious (Much less than before) - Affect Affect: Other (Appropriate) - Speech Speech: Appropriate - Formal Thought Process Formal Thought Process: No Impairment Psychotic Thoughts and Behaviors: None - Suicidal Ideation Suicidal Ideation: No - Homicidal Ideation Homicidal Ideation: No Goal/Treatment Plan - Goal/Treatment Plan Need for Continued Stay: Remain at risks for inpatient hospitalization, Discharge may exacerbated symptoms, Severe functional impairment Progress Toward Problem(s) and Goals/Treatment Plan: Patient education. Supportive therapy. CBT for relapse prevention. DE for abstinence. Continue treatment as before. Estimated Date of D/C: 10/25/18 - Smoking Cessation Smoking Cessation Initiated: Yes
[2018-10-25] MEDS: Multiple Vitamins Tab PO SCH (09:25)
[2018-10-25 09:59] VITALS: BP 108/76; PULSE 90; TEMP 97.7; O2SAT 100
--- NOTE | 2018-10-25 16:52 | PCM.PYCHDC ---
Mental Status Examination - Mental Status Examination Orientation: Person, Place, Situation, Time Memory: Intact Mood: Neutral Affect: Other (Appropriate) Speech: Soft Attention: WNL Association: WNL Fund of Knowledge: WNL Formal Thought Process: No Impairment Description of patient's judgement and insight: Fair Psychotic Thoughts and Behaviors: None Suicidal Ideation: No Current Homicidal Ideation?: No Discharge Summary - Discharge Note Reason for Hospitalization: Alcohol use disorder severe. Cocaine use disorder severe. Schizoaffective disorder bipolar type. Laboratory Data: Reviewed Consultations:: List each consultation separately and include: 1. Reason for request. 2. Findings. 3. Follow-up Summary of Hospital Course include:: 1. Description of specific treatment plan utilized for patients during their course of treatmen. 2. Summarize the time-course for resolution of acute symptoms and/or regressed behaviors. 3. Describe issues identified and worked on during hospitalization. 4. Describe medication utilized. 5. Describe medical problems identified and treated. 6. Reassessment of suicide risk Summary of Hospital Course: This is a 42 years old single -[place] male, who came to the ED to get help and alcohol detox. Cooper Helper is familiar with with this patient. Patient has a long history of schizophrenia, as well as history of alcohol use, cocaine use and PCP use disorder. Patient has a long history of inpatient psychiatric hospitalizations. He was last discharged from [facility] in March. As per the patient he is following up with a [facility]. However he relapsed on drinking and recently he be came noncompliant with her medications as well. Patient reports that he is drinking from 6 pack of beer and a pint to a 12 pack of beer and 1 pint of alcohol daily. Patient reports that his last drank was yesterday. He reports withdrawal symptoms, including tremors, anxiety, nausea, shakes, headaches, sweats and restlessness. He reports auditory hallucinations, hearing voices off and on, all the time. He also reports of paranoia. He reports at times anxiety and depressed mood but denies any feelings of hopelessness or helplessness or worthlessness. He denies any suicidal ideation or any homicidal ideation. He reports of smoking cocaine and PCP, last abuse was almost 5 days ago. He denies any visual hallucinations. Past medical history None reported During his stay in the hospital patient was treated with Librium taper for alcohol withdrawal symptoms. Patient was also started on his other medications for schizoaffective disorder which include fluoxetine, Haldol, gabapentin. Patient was also started on other PRN medications. During his stay in the hospital patient was attending groups and other activities on the unit. With above treatment patient started feeling better. Today patient was stable and ready for discharge from the hospital. At the time of evaluation and discharge, patient was awake, alert and oriented x3, had no delusions, no auditory or visual hallucinations, no suicidal ideations or homicidal ideation. Patient was discharged in a stable condition. - Diagnosis (1) Alcohol use disorder, severe, dependence Status: Acute (2) Cocaine use disorder, severe, dependence Status: Acute (3) Phencyclidine (PCP) use disorder, severe Status: Acute (4) Schizoaffective disorder, bipolar type Status: Acute - Final Diagnosis (DSM 5) Condition upon Discharge: STABLE Disposition: HOME/ ROUTINE Follow-up Treatment Plan: Patient will go to long-term care for follow-up care after discharge from the hospital. Prescriptions/Medication Reconciliation: FLUoxetine [Prozac] 40 mg PO DAILY #30 cap Gabapentin [Neurontin] 300 mg PO BID #60 cap Mirtazapine [Remeron] 15 mg PO HS #30 tab QUEtiapine [SEROquel] 200 mg PO HS #30 tab traZODone [Desyrel] 50 mg PO HS PRN #30 tab PRN Reason: Insomnia - Smoking Cessation Smoking Cessation Medication prescribed: No - Antipsychotic Medications Pt discharged on 2 or more routine antipsychotic medications: No
== END 2018-10-25 10:09 | disposition home or self-care (01) | DRG 750 ==
LOC: C.ER 12:43 → C.7D 15:22
PROVIDERS: ADMIT Psychiatry & Neurology Psychiatry; ATTEND Psychiatry & Neurology Psychiatry
DX: F10.239 Alcohol dependence with withdrawal, unspecified (principal); F25.0 Schizoaffective disorder, bipolar type; F14.20 Cocaine dependence, uncomplicated; F16.20 Hallucinogen dependence, uncomplicated; F41.9 Anxiety disorder, unspecified; G47.30 Sleep apnea, unspecified; Z87.891 Personal history of nicotine dependence; Z91.14 Patient's other noncompliance with medication regimen